=== PATIENT | female | born 1930 | race Caucasian/White ===

== ENCOUNTER 2016-07-15 15:32 | Inpatient (IN) | payer OTHER, MEDICARE ==
[~2016-07-15] VITALS: Ht 157.5 cm; Wt 62.6 kg
--- NOTE | 2016-07-15 16:03 | NUR ---
RECEIVED 85 YO FEMALE SENT BY PCP, DR JUNIOR, FOR DECREASED RESPONSIVENESS X FEW DAYS, NOT EATING OR DRINKING, CONTINUOUS NAUSEA. PT D/C'D [facility] 3 WEEKS AGO FOR CHF. IN OFFICE, HR HIGH, B/P LOW.
--- NOTE | 2016-07-15 16:32 | ED AMS/SEIZURE/WEAK/DIZZY ---
History of Present Illness General Chief Complaint: General Adult Stated Complaint: SENT IN BY PCP, NOT WELLING Source: patient, family, old records Exam Limitations: no limitations Allergies Coded Allergies: bumetanide (From BUMEX) (Intermediate, SKIN BLISTERS 07/15/16) furosemide (Intermediate, SKIN BLISTERS 07/15/16) Reconcile Medications Aspirin (Aspirin*) 81 MG TAB.CHEW 1 TAB PO DAILY HEART/BLOOD (Reported) Carbidopa/Levodopa (Sinemet 25-100 MG Tablet) 25 MG-100 MG TABLET 1 TAB PO 4XDAILY PARKINSONS (Reported) Hydrochlorothiazide 25 MG TABLET 1 TAB PO DAILY DIURETIC (Reported) Spironolactone 25 MG TABLET 1 TAB PO DAILY DIURETIC (Reported) Triage Note: RECEIVED 85 YO FEMALE SENT BY PCP, DR JUNIOR, FOR DECREASED RESPONSIVENESS X FEW DAYS, NOT EATING OR DRINKING, CONTINUOUS NAUSEA. PT D/C'D [facility] 3 WEEKS AGO FOR CHF. IN OFFICE, HR HIGH, B/P LOW. Triage Nurses Notes Reviewed? yes Onset: Gradual Duration: week(s): (3), constant, getting worse Timing: recent history Injury Environment: home Severity: moderate Severity Numbers: 7 No Modifying Factors: none Associated Symptoms: nausea HPI: 85-year-old female history of Parkinson's hypertension and CHF presents sent in by her primary care physician complaining of progressively worsening weakness poor appetite and nausea. She was seen at [facility] last month for similar symptoms with no known cause identified. The patient denies any abdominal pain however states she's been nauseous and has had decreased appetite secondary to her symptoms. No diarrhea black or bloody stools no urinary frequency urgency or dysuria. 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 No recent changes in her medications no modifying factors or associated symptoms otherwise. (RAZ DE LA CRUZ) Vital Signs & Intake/Output Vital Signs & Intake/Output Vital Signs Date Time Temp Pulse Resp B/P Pulse O2 O2 Flow FiO2 Ox Delivery Rate 07/15 2114 93 18 123/70 96 Nasal 2.0L Cannula 07/15 1836 96.7 18 93 Nasal 1.0L Cannula 07/15 1836 104 18 143/77 87 Room Air 07/15 1559 98.5 109 20 146/88 92 Room Air Past History Travel History Traveled to [place] past 21 day No Medical History Any Pertinent Medical History? see below for history Neurological: Parkinson's disease EENT: NONE Cardiovascular: hypertension, mitral regurgitation, MITRAL VALVE PROLAPSE Surgical History Surgical History: non-contributory Psychosocial History What is your primary language Syriac Tobacco Use: Never used Family History Hx Contributory? No (RAZ DE LA CRUZ) Review of Systems Review of Systems Constitutional: Reports: see HPI. All Other Systems: Reviewed and Negative Comments Review of systems: See HPI, All other systems negative. Constitutional, no chills no fever, malaise HEENT: No visual changes no sore throat no congestion, no ear pain Cardiovascular: No chest pain , no palpitation , Skin, no jaundice no rashes, no change in skin Respiratory: No dyspnea no cough no sputum GI: No nausea no vomiting, no diarrhea, : No dysuria No hematuria, no frequency Muscle skeletal: No joint pain, no back pain, no neck pain, Neurologic: No numbness no confusion, no headache Psych: No stress Heme/endocrine: No bruising no bleeding Immunology: No lymphadenopathy (RAZ DE LA CRUZ) Physical Exam Physical Exam General Appearance: well developed/nourished, alert, awake Comments: Well-developed well-nourished person in no acute distress HEENT: Normal EENT exam; PERRL, EOMI, . HEAD is atraumatic. moist mucous membranes. Neck: Supple, normal range of motion Back: Nontender, no CVA tenderness. Full range of motion Cardiovascular: Regular rate and rhythms no murmurs rubs Respiratory: Chest nontender.There were no bony deformities, no asymmetry. No respiratory distress. Patient speaking in full complete sentences. Breath sounds clear to auscultation bilaterally: NO W/R/R Abdomen: Soft, nontender nondistended, no appreciable organomegaly. Normal bowel sounds. No rebound/guarding, there is no right upper quadrant tenderness to palpation negative Mathis's Extremity: No edema, full range of motion of extremities Neuro: Alert oriented x3, motor sensory normal, cranial nerves II through XII grossly intact. There were no obvious focal neurologic abnormalities. Skin: No appreciable rash on exposed skin, skin is warm and dry. No jaundice Psych: Mood and affect is normal, memory and judgment is normal. Core Measures ACS in differential dx? No CVA/TIA Diagnosis: No Severe Sepsis Present: No Septic Shock Present: No (RAZ DE LA CRUZ) Progress Differential Diagnosis: arrythmia, anemia, benign positional vertigo, CVA/stroke , dehydration, electrolyte imbalance, GI bleed, hypoglycemia, hypoxia, pneumonia , postural hypotension, seizure disorder, subarachnoid Hem., UTI/pyelo, vertebrobasilar insuff, electrolyte abnoramlity Diagnostic Imaging: Viewed by Me: Radiology Read. Discussed w/RAD: Radiology Read. Radiology Impression: PATIENT: LINDA JEFFRIES PRESENT AGE: 85 PATIENT ACCOUNT NO: [id number] : [birth year] LOCATION: [facility] ORDERING PHYSICIAN: RAZ HAIDER SERVICE DATE: 07/15/16 EXAM TYPE: RAD - XRY- PORTABLE CHEST XRAY EXAMINATION: XR PORTABLE CHEST CLINICAL INFORMATION: Malaise. Weakness. COMPARISON: None. TECHNIQUE: Portable AP view of the chest was obtained. FINDINGS: Single AP view of the chest demonstrates pulmonary hypoinflation. There is blunting of the bilateral costophrenic angles, indicative of small bilateral pleural effusions. Cardiomediastinal contours are prominent and there is mild to moderate central venous congestion. No overt pulmonary edema is identified. Bibasilar opacification is likely secondary to atelectasis although superimposed infection cannot be excluded. There is limited evaluation for small apical pneumothoraces given patient neck positioning. Incidental note is made of moderate to severe degenerative changes of the right glenohumeral joint. IMPRESSION: Bilateral pleural effusions, [id number] in volume. Cardiomegaly and mild central venous congestion, without overt pulmonary edema. DICTATED BY: STEPHANIE SUGGS MD DATE/TIME DICTATED:07/15/161731 FOOD SERVICE ORDER CLERK:CALIXTO DATE/TIME TRANSCRIBED:07/15/161731 CONFIDENTIAL, DO NOT COPY WITHOUT APPROPRIATE AUTHORIZATION. <Electronically signed in Other Vendor System> SIGNED BY: STEPHANIE SUGGS MD 07/15/16 1746 Initial ED EKG: sinus tach at 100, PVC, nonspecific ST segment changes Rhythm Strip: normal sinus rhythm (RAZ DE LA CRUZ) Plan of Care: Orders Procedure Date/time Status Regular Diet 07/16 B Active Patient Data 07/15 2141 Active OXYGEN SETUP (GEN) 07/15 2009 Active Saline Lock 07/15 2009 Active Misc Message 07/15 2009 Active ED Holding Orders 07/15 2009 Active Vital Signs 07/15 2009 Active Activity/Ambulation 07/15 2009 Active Code Status 07/15 2009 Active Admit to inpatient 07/15 1931 Active Add-on Test (ER Only) 07/15 1906 Active Add-on Test (ER Only) 07/15 1813 Active CULTURE,URINE 07/15 181 Active Add-on Test (ER Only) 07/15 1803 Active DIRECT BILIRUBIN 07/15 1700 Complete B-TYPE NATRIURETIC PEP (BNP) 07/15 1700 Complete URINALYSIS 07/15 1653 Complete TROPONIN LEVEL 07/15 1653 Complete MAGNESIUM 07/15 1653 Complete COMPREHENSIVE METABOLIC PANEL 07/15 165 Complete CBC WITHOUT DIFFERENTIAL 07/15 165 Complete EKG 07/15 1632 Active Laboratory Tests 07/15/16 1810: Urine Color YEL, Urine Clarity HAZY H, Urine pH 6.5, Ur Specific [place] 1.015, Urine Protein NEG, Urine Ketones NEG, Urine Nitrite POS H, Urine Bilirubin NEG, Urine Urobilinogen 0.2, Ur Leukocyte Esterase SMALL H, Ur Microscopic SEDIMENT EXAMINED, Urine RBC 3-5, Urine WBC 15-25 H, Ur Epithelial Cells OCCAS, Urine Bacteria MANY H, Urine Hemoglobin TRACE-INTACT, Urine Glucose NEG 07/15/16 1700: Anion Gap 12, Estimated GFR > 60, BUN/Creatinine Ratio 17.1, Glucose 101 H, Calcium 9.4, Magnesium 1.6, Total Bilirubin 3.8 H, Direct Bilirubin 0.6 H, AST 15, ALT 26, Alkaline Phosphatase 89, Troponin I 0.02, Zcw-R-Lyemfaztrmo Pept 4480 H, Total Protein 6.8, Albumin 3.8, Globulin 3.0, Albumin/Globulin Ratio 1.3, CBC w Diff NO MAN DIFF REQ, RBC 4.78, MCV 91.0, MCH 30.4, RDW 14.5, MPV 7.9 , Gran % 82.8 H, Lymphocytes % 8.2 L, Monocytes % 7.2, Eosinophils % 0.5, Basophils % 1.3, Absolute Granulocytes 9.3 H, Absolute Lymphocytes 0.9 L, Absolute Monocytes 0.8 H, Absolute Eosinophils 0.1, Absolute Basophils 0.1, PUBS MCHC 33.4 Microbiology 07/15 1810 URINE ROUT: Urine Culture - RECD Labs ordered old records included patient's previous hospitalization records were reviewed that were made available to me by family patient denies any symptoms at this time other than nausea, her abdomen exam is soft nontender Old records reviewed including the patient's previous visit to an admission to [facility],. The patient was found to be dehydrated with jaundice and elevated LFTs. bilirubin elevated in upper 2's The patient had an outpatient MRCP performed Patient's recent ultrasound of the abdomen showed gallbladder sludge there is no biliary duct dilatation normal liver tiny right pleural effusion, recent chest x -ray showed no acute pulmonary process. 07/15/2016 6:17:01 PM discussed with the patient's family all her lab results x- ray findings to date resting comfortably IV fluids slowly infusing Zofran IV ordered 07/15/2016 6:43:40 PM I was called to the patient's room after she was noted to be 87% on room air the fluids were stopped, the lungs are clear to auscultation she was put on 2 L with oxygen saturation up to 95%. Patient denies shortness of breath difficulty breathing chest pain. She reports her nausea has completely resolved with Zofran. CTA ordered patient again resting comfortably 07/15/2016 7:36:27 PM patient resting comfortably on 2 L 94% denies shortness of breath, chest pain with inspiration no abdominal pain abdomen remained soft nontender nausea has resolved discussed with the patient and her family at length all of her lab results and plan of care, pending CTA case was discussed with Dr. MARIA ELENA BARRIENTOS ADMIT- house staff will follow resulst of cta/abd pelivs (JUSTIN HAIDER,RAZ) Radiology Impression: PATIENT: LINDA JEFFRIES PRESENT AGE: 85 PATIENT ACCOUNT NO: [id number] : [birth year] LOCATION: [facility] ORDERING PHYSICIAN: RAZ HAIDER SERVICE DATE: 07/15/16 EXAM TYPE: CAT - CT ABD & PELVIS W IV CONTRAST; CTA CHEST-PULMONARY EMBOLISM EXAMINATION: CT ANGIOGRAM CHEST WITH CONTRAST CT ABDOMEN AND PELVIS WITH CONTRAST CLINICAL INFORMATION: Hypoxia. Tachycardia. Elevated bilirubin. Nausea. COMPARISON: Chest x-ray 07/15/2016. TECHNIQUE: A noncontrast localizer was performed, followed by the administration of 95 mL Optiray [address] of the chest was then performed. Coronal and sagittal reformatted and 3-D technique MIP images of the chest were completed at the CT scanner and reviewed on the PACS workstation. No adverse effects were reported. Images were then performed through the abdomen and pelvis. Coronal and sagittal reformatted images performed at CT scanner by technologist. DLP: 629.74 mGy-cm. FINDINGS: CTA CHEST : VASCULAR: The main pulmonary artery, secondary and tertiary branches of the pulmonary artery are normally opacified with no evidence of pulmonary embolism. The aorta and great vessels are unremarkable. MEDIASTINUM: No mediastinal mass. No significant lymphadenopathy. There is no pericardial effusion. LUNGS: Bibasilar consolidation at lung bases. FLUID: Moderate volume bilateral pleural effusions. AXILLA: No significant lymphadenopathy. CT SCAN ABDOMEN PELVIS: LIVER , GALLBLADDER, AND BILIARY TREE: The liver is normal in size, shape, and attenuation. No focal hepatic lesion or biliary ductal dilatation is present. The gallbladder is unremarkable with no evidence of radiopaque gallstones, gallbladder wall thickening, or obvious pericholecystic inflammatory changes. PANCREAS: Unremarkable. SPLEEN: Unremarkable. ADRENAL GLANDS: Unremarkable. KIDNEYS AND URETERS: A 2 cm cortical cyst at the upper pole of the left kidney. No hydronephrosis. No renal or ureteral calculus. BLADDER: Unremarkable. GASTROINTESTINAL TRACT: Diverticulosis throughout the large bowel. No diverticulitis. No acute change of bowel. No bowel obstruction. No bowel wall thickening or edema. Moderate volume of stool throughout the colon. The appendix is normal. The small bowel loops are normal. ABDOMINAL WALL: 2.8 x 1.9 x 2.7 cm fat-containing right inguinal hernia. LYMPH NODES: Normal. VASCULAR: Vascular wall calcifications throughout the abdomen and pelvis. No aneurysm of the aorta. PELVIC VISCERA: Status post hysterectomy. OSSEOUS STRUCTURES: Degenerative spondylosis of the spine with disc height narrowing and endplate spurs and facet joint arthrosis. Levoscoliosis at the thoracolumbar junction. IMPRESSION: 1. No evidence of pulmonary embolism. 2. Bilateral pleural effusions with bibasilar atelectasis. 3. No acute abnormality of the abdomen or pelvis. There is diverticulosis of the colon but no acute change of the bowel. No abnormality of the liver, gallbladder or bile ducts. DICTATED BY: MONI BENTLEY MD DATE/TIME DICTATED:07/15/162047 FOOD SERVICE ORDER CLERK:CALIXTO DATE/TIME TRANSCRIBED:2047 CONFIDENTIAL, DO NOT COPY WITHOUT APPROPRIATE AUTHORIZATION. < Electronically signed in Other Vendor System> SIGNED BY: MONI BENTLEY MD [id number] (ANDREIA CROCKETT,ADRI Zarco) Departure Departure Time of Disposition: 1934 Disposition: STILL A PATIENT Condition: Stable Clinical Impression Primary Impression: UTI (urinary tract infection) Secondary Impressions: Elevated bilirubin, Fluid overload, Pleural effusion, Weakness Referrals: SANDI CROCKETT,TAYLA Pereyra (PCP/Family) Departure Forms: Customer Survey General Discharge Information Admission Note Spoke With: LEIGHANN ARREDONDO MD Documentation of Exam: Documentation of any treatments & extenuating circumstances including Concerns Regarding Discharge (functional status, medication knowledge or non-compliance, living conditions, etc.) that warrant an admission rather than observation: Cardiology consult possible GI consult given elevated bilirubin trend labs possible IV diuresis IV antibiotics trend cultures premature discharge would BE medically harmful (RAZ DE LA CRUZ) PA/OPEN HEARTH FURNACE OPERATOR HELPER Co-Sign Statement Statement: ED Attending supervision documentation- [x] I saw and evaluated the patient. I have also reviewed all the pertinent lab results and diagnostic results. I agree with the findings and the plan of care as documented in the PA's/OPEN HEARTH FURNACE OPERATOR HELPER's documentation. [] I have reviewed the ED Record and agree with the PA's/OPEN HEARTH FURNACE OPERATOR HELPER's documentation. [] Additions or exceptions (if any) to the PAs/OPEN HEARTH FURNACE OPERATOR HELPER's note and plan are summarized below: [] (FATOUMATA HAIDER,ANNAMARIA)
[2016-07-15] MEDS ORDERED: OMEPRAZOLE20 M2 PO (16:37)
[2016-07-15] MEDS ORDERED: SPIRONOLACTONE25 M1 PO (16:38)
[2016-07-15] MEDS ORDERED: HYDROCHLOROTHIA25 M1 PO (16:38)
[2016-07-15] MEDS ORDERED: ASPIRIN81 M4 PO (16:39)
[2016-07-15 17:11] LABS: ABSOLUTE BASOPHIL COUNT 0.1 /CUMM (0.0-0.2); ABSOLUTE EOSINOPHIL COUNT 0.1 /CUMM (0.0-0.7); ABSOLUTE GRANULOCYTE CT 9.3 /CUMM (1.4-6.5); ABSOLUTE LYMPH COUNT 0.9 /CUMM (1.2-3.4); ABSOLUTE MONOCYTE COUNT 0.8 /CUMM (0.10-0.60); BASOPHIL % 1.3 % (0.0-2.0); EOSINOPHIL % 0.5 % (0-5); GRANULOCYTE % 82.8 % (42.2-75.2); HEMATOCRIT 43.5 % (37-47); MEAN CORPUSCULAR HGB 30.4 PG (27.0-31.0); MEAN CORPUSCULAR HGB CONC 33.4 G/DL (33.0-37.0); MEAN PLATELET VOLUME 7.9 FL (7.4-10.4); PLATELET COUNT 212 /CUMM (130-400); RBC DISTRIBUTION WIDTH 14.5 % (11.5-14.5); RED BLOOD CELL CT 4.78 /CUMM (4.20-5.40); WHITE BLOOD CELL COUNT 11.3 /CUMM (4.8-10.8)
--- NOTE | 2016-07-15 17:44 | RADIOLOGY REPORT ---
EXAMINATION: XR PORTABLE CHEST CLINICAL INFORMATION: Malaise. Weakness. COMPARISON: None. TECHNIQUE: Portable AP view of the chest was obtained. FINDINGS: Single AP view of the chest demonstrates pulmonary hypoinflation. There is blunting of the bilateral costophrenic angles, indicative of small bilateral pleural effusions. Cardiomediastinal contours are prominent and there is mild to moderate central venous congestion. No overt pulmonary edema is identified. Bibasilar opacification is likely secondary to atelectasis although superimposed infection cannot be excluded. There is limited evaluation for small apical pneumothoraces given patient neck positioning. Incidental note is made of moderate to severe degenerative changes of the right glenohumeral joint. IMPRESSION: Bilateral pleural effusions, [id number] in volume. Cardiomegaly and mild central venous congestion, without overt pulmonary edema.
[2016-07-15] MEDS ORDERED: SINEMET 25-1001 EACH PO (18:13)
--- NOTE | 2016-07-15 20:06 | NUR ---
PT TO CT
--- NOTE | 2016-07-15 21:24 | CT SCAN REPORT ---
EXAMINATION: CT ANGIOGRAM CHEST WITH CONTRAST CT ABDOMEN AND PELVIS WITH CONTRAST CLINICAL INFORMATION: Hypoxia. Tachycardia. Elevated bilirubin. Nausea. COMPARISON: Chest x-ray 07/15/2016. TECHNIQUE: A noncontrast localizer was performed, followed by the administration of 95 mL Optiray [address] of the chest was then performed. Coronal and sagittal reformatted and 3-D technique MIP images of the chest were completed at the CT scanner and reviewed on the PACS workstation. No adverse effects were reported. Images were then performed through the abdomen and pelvis. Coronal and sagittal reformatted images performed at CT scanner by technologist. DLP: 629.74 mGy-cm. FINDINGS: CTA CHEST: VASCULAR: The main pulmonary artery, secondary and tertiary branches of the pulmonary artery are normally opacified with no evidence of pulmonary embolism. The aorta and great vessels are unremarkable. MEDIASTINUM: No mediastinal mass. No significant lymphadenopathy. There is no pericardial effusion. LUNGS: Bibasilar consolidation at lung bases. FLUID: Moderate volume bilateral pleural effusions. AXILLA: No significant lymphadenopathy. CT SCAN ABDOMEN PELVIS: LIVER, GALLBLADDER, AND BILIARY TREE: The liver is normal in size, shape, and attenuation. No focal hepatic lesion or biliary ductal dilatation is present. The gallbladder is unremarkable with no evidence of radiopaque gallstones, gallbladder wall thickening, or obvious pericholecystic inflammatory changes. PANCREAS: Unremarkable. SPLEEN: Unremarkable. ADRENAL GLANDS: Unremarkable. KIDNEYS AND URETERS: A 2 cm cortical cyst at the upper pole of the left kidney. No hydronephrosis. No renal or ureteral calculus. BLADDER: Unremarkable. GASTROINTESTINAL TRACT: Diverticulosis throughout the large bowel. No diverticulitis. No acute change of bowel. No bowel obstruction. No bowel wall thickening or edema. Moderate volume of stool throughout the colon. The appendix is normal. The small bowel loops are normal. ABDOMINAL WALL: 2.8 x 1.9 x 2.7 cm fat-containing right inguinal hernia. LYMPH NODES: Normal. VASCULAR: Vascular wall calcifications throughout the abdomen and pelvis. No aneurysm of the aorta. PELVIC VISCERA: Status post hysterectomy. OSSEOUS STRUCTURES: Degenerative spondylosis of the spine with disc height narrowing and endplate spurs and facet joint arthrosis. Levoscoliosis at the thoracolumbar junction. IMPRESSION: 1. No evidence of pulmonary embolism. 2. Bilateral pleural effusions with bibasilar atelectasis. 3. No acute abnormality of the abdomen or pelvis. There is diverticulosis of the colon but no acute change of the bowel. No abnormality of the liver, gallbladder or bile ducts.
--- NOTE | 2016-07-15 22:27 | History & Physical ---
BENJIE CAMPOS MD 07/15/167: General Information and HPI MD Statement: I have seen and personally examined LINDA JEFFRIES and documented this H&P. The patient is a 85 year old F who presented with a patient stated chief complaint of nausea, fatigue, malaise. Source of Information: patient, family, old records Exam Limitations: clinical condition History of Present Illness: 85-year-old woman with significant past medical history of Parkinson's disease sent in for evaluation by her primary care provider for progressively worsening weakness, poor appetite, and nausea. Patient is a poor historian secondary to clinical condition and baseline mental function, she is accompanied by multiple family members to offer collateral information regarding her healthcare condition. Patient was recently admitted to [facility] last month for similar symptoms for which she underwent an extensive evaluation due to findings of elevated liver function testing, elevated bilirubin, and dehydration. During this hospital stay patient was given intravenous fluid resuscitation, however subsequently became fluid overloaded requiring diuresis for an acute congestive heart failure exacerbation with Bumex as patient is allergic to Lasix. Collateral information obtained from family reveals that Gilbert's Disease runs in the family, but are unsure if the patient has the disease. Patient had an outpatient MRCP performed which was reportedly within normal limits. Patient's recent abdominal ultrasound reportedly showed gallbladder sludge without any biliary duct dilatation. Presently patient is resting comfortably and offers no complaints, however she appears to stare off into space and it is unclear if she is understanding of questioning. When asked if she has any complaints she states no. Additionally she denies any headache, fever, chills, chest pain, palpitations, shortness of breath, cough, nausea, vomiting, diarrhea, numbness/tingling PMHx: Parkinson's disease, hypertension, congestive heart failure, mitral valve prolapse, hypertension Allergies/Medications Allergies: Coded Allergies: bumetanide (From BUMEX) (Intermediate, SKIN BLISTERS 07/15/16) furosemide (Intermediate, SKIN BLISTERS 07/15/16) Home Med list Aspirin (Aspirin*) 81 MG TAB.CHEW 1 TAB PO DAILY HEART/BLOOD (Reported) Carbidopa/Levodopa (Sinemet 25-100 MG Tablet) 25 MG-100 MG TABLET 1 TAB PO 4XDAILY PARKINSONS (Reported) Hydrochlorothiazide 25 MG TABLET 1 TAB PO DAILY DIURETIC (Reported) Spironolactone 25 MG TABLET 1 TAB PO DAILY DIURETIC (Reported) Past History Travel History Traveled to [place] past 21 day No Medical History Neurological: Parkinson's disease EENT: NONE Cardiovascular: hypertension, mitral regurgitation, MITRAL VALVE PROLAPSE Surgical History Surgical History: non-contributory Review of Systems Review of Systems Constitutional: Reports: see HPI. Exam & Diagnostic Data Last 24 Hrs of Vital Signs/I&O Vital Signs Date Time Temp Pulse Resp B/P Pulse O2 O2 Flow FiO2 Ox Delivery Rate 07/16 0107 97.4 83 18 110/70 97 Nasal 2.0L Cannula 07/15 2241 97.8 86 18 114/64 96 Nasal 2.0L Cannula 07/15 2114 93 18 123/70 96 Nasal 2.0L Cannula 07/15 1836 96.7 18 93 Nasal 1.0L Cannula 07/15 1836 104 18 143/77 87 Room Air 07/15 1559 98.5 109 20 146/88 92 Room Air Intake & Output 07/16 0800 07/16 0000 07/15 1600 Intake Total Output Total Balance Patient 65.317 kg Weight Physical Exam General Appearance Cooperative, No Acute Distress Skin No Rashes, No Breakdown, No Significant Lesion HEENT Atraumatic, PERRLA, EOMI, Mucous Membr. moist/pink Neck Supple, No JVD, No thryomegaly, +2 Carotid Pulse wo Bruit Cardiovascular Regular Rate, Normal S1, Normal S2, Holosystolic murmur with radiation to the axilla Lungs Bibasilar crackles Abdomen Normal Bowel Sounds, Soft, No Tenderness, No Hepatospenomegaly, No Masses Neurological Sensation Intact, Cranial Nerves 3-12 NL, Soft speech, Increased tone, masked facial expression Extremities No Clubbing, No Cyanosis, No Edema, Normal Pulses, No Tenderness/ Swelling Vascular Normal Pulses, Pulses Symmetrical Last 24 Hrs of Labs/Jerod: Laboratory Tests 07/16/16 0045: Troponin I 0.03 07/15/16 1810: Urine Color YEL, Urine Clarity HAZY H, Urine pH 6.5, Ur Specific [place] 1.015, Urine Protein NEG, Urine Ketones NEG, Urine Nitrite POS H, Urine Bilirubin NEG, Urine Urobilinogen 0.2, Ur Leukocyte Esterase SMALL H, Ur Microscopic SEDIMENT EXAMINED, Urine RBC 3-5, Urine WBC 15-25 H, Ur Epithelial Cells OCCAS, Urine Bacteria MANY H, Urine Hemoglobin TRACE-INTACT, Urine Glucose NEG 07/15/16 1700: Anion Gap 12, Estimated GFR > 60, BUN/Creatinine Ratio 17.1, Glucose 101 H, Calcium 9.4, Magnesium 1.6, Total Bilirubin 3.8 H, Direct Bilirubin 0.6 H, AST 15, ALT 26, Alkaline Phosphatase 89, Troponin I 0.02, Axq-K-Lyzhxofpecz Pept 4480 H, Total Protein 6.8, Albumin 3.8, Globulin 3.0, Albumin/Globulin Ratio 1.3, CBC w Diff NO MAN DIFF REQ, RBC 4.78, MCV 91.0, MCH 30.4, RDW 14.5, MPV 7.9 , Gran % 82.8 H, Lymphocytes % 8.2 L, Monocytes % 7.2, Eosinophils % 0.5, Basophils % 1.3, Absolute Granulocytes 9.3 H, Absolute Lymphocytes 0.9 L, Absolute Monocytes 0.8 H, Absolute Eosinophils 0.1, Absolute Basophils 0.1, PUBS MCHC 33.4 Microbiology 07/15 1810 URINE ROUT: Urine Culture - RECD Diagnostic Data EKG Results Sinus Tachycardia HR 106 WI 100 QTc 487 CXR Results IMPRESSION: Bilateral pleural effusions, [id number] in volume. Cardiomegaly and mild central venous congestion, without overt pulmonary edema. Other Results EXAM TYPE: CAT - CT ABD & PELVIS W IV CONTRAST; CTA CHEST-PULMONARY EMBOLISM IMPRESSION: 1. No evidence of pulmonary embolism. 2. Bilateral pleural effusions with bibasilar atelectasis. 3. No acute abnormality of the abdomen or pelvis. There is diverticulosis of the colon but no acute change of the bowel. No abnormality of the liver, gallbladder or bile ducts. Assessment/Plan Assessment: 85-year-old woman with multiple medical problems seen for evaluation of fatigue, malaise, nausea. Patient was reportedly hypoxic to 87% on room air in the ED for which she was placed on supplemental oxygen via nasal cannula and responded appropriately. For her symptoms of nausea, fatigue, malaise she was given 1 L of intravenous normal saline fluid resuscitation and subsequently developed bibasilar crackles. Patient did not have any obvious jugular venous distention or bilateral lower extremity edema. CTA ruled out any evidence of a pulmonary embolus him did comment on bilateral pleural effusions. Given her persistent symptoms suggestive of a gastroenteritis and deranged hepatic function testing in the context of a previous history of congestive heart failure patient is to be admitted to the telemetry floor for optimization of her fluid status and further care. Acute congestive heart failure exacerbation Patient of Dr. Howard. Last month patient was hospitalized at [facility] for similar symptoms of nausea, malaise, and vomiting for which she was given intravenous fluid resuscitation and subsequently developed an acute congestive heart failure exacerbation from fluid overload. She has a reported history of an allergy to Lasix which causes her to develop a bullous pemphigoid exacerbation. She also has an adverse reaction to Bumex with a similar reaction as Lasix however less severe. She has used clobetasol in the past for these bullae formation which offers her relief. Patient has not taken her home doses of spironolactone or hydrochlorothiazide for the past week. -Telemetry -Trend Troponin/EKG -Echocardiogram -Bumex 0.5 mg by mouth IV -Hold spironolactone/hydrochlorothiazide, restart as tolerated per fluid status -Clobetasol 1 application topically when necessary for bullae formation -Benadryl as needed for adverse reaction to Bumex -Cardiology consult Nausea/vomiting/weakness/malaise/transaminitis Patient with a family history of Gilbert's disease. She has a reported history of persistently elevated transaminases with elevated total bilirubin to the "5" during her recent [facility] hospitalization. Outpatient MRCP reportedly negative. The symptoms may be secondary to an undiagnosed gastrointestinal disease, however are also possibly suggestive of a gastroenteritis with an undiagnosed Gilbert's disease. -Avoid aggressive intravenous fluids due to history of CHF -Zofran 4 mg IV every 12 hours as needed for nausea, -careful monitoring of worsening prolonged QTc interval, currently 487 -Obtain report for patient's outpatient MRCP Parkinson's disease Patient of Dr. Figueroa. Recently started on Sinemet 3 weeks ago for worsening Parkinson's disease. Patient's reported mental baseline reports that she has waxing/waning lucency with limited ADLs -Sinemet 1 tablet by mouth twice a day -PT evaluation Urinary tract infection Urinalysis demonstrated the VBC 15-25 with occasional epithelial cells and many bacteria with small leukocytes esterase suggestive of a urinary tract infection. She currently denies any symptoms of urinary frequency/urgency/burning/ discharge however due to her clinical/mental condition it is on certain if she is understanding of questioning. -Ceftriaxone 1 g IV daily -Follow-up urine culture and sensitivities Pain plan-acetaminophen Diet-CHF diet DVT prophylaxis-Lovenox CODE STATUS-DNR/DNI As Ranked By This Provider Problem List: 1. Pleural effusion 2. UTI (urinary tract infection) 3. Fluid overload Core Measures/Miscellaneous Acute Coronary Syndrome ACS Diagnosis: No Cerebrovascular Accident CVA/TIA Diagnosis: No Congestive Heart Failure CHF Diagnosis: Yes Comment: Unknown last echo or EF Venous Thromboembolism VTE Risk Factors: Acute medical illness, Age > 40, CHF or Resp failure No Mech VTE prophylaxis d/t: No contraindications No VTE Pharm Prophylaxis d/t: No contraindications VTE Diagnosis: No VTE Type: NONE VTE Confirmed by (Test): NONE Severe Sepsis Severe Sepsis Present: No Septic Shock Septic Shock Present: No Miscellaneous Documentation Attending Case Discussed With: LEIGHANN ARREDONDO MD Primary Care Physician: TAYLA JUNIOR MD Patient sees these Specialists Dr. Lee Magdaleno Level of Patient Care: Telemetry Consults Needed: Consulting Specialty: Cardiology MAXI ARREDONDO MD 07/15/16 2254: Attending MD Review Statement Attending Statement Attending MD Statement: examined this patient, discuss w/resident/PA/HOME OFFICE CLAIMS EXAMINER, agreed w/resident/PA/HOME OFFICE CLAIMS EXAMINER, discussed with family Attending Assessment/Plan: 85 yo F with h/o Parkinson's disease, atrial valve prolapse, mitral regurgitation, CHF, HTN is brought in from assisted/ half-way for 1 week h/ o weakness, anorexia and nausea. She denies cough, chest pain, lightheadedness, vomiting, abdominal pain, diarrhea or urinary symptoms. Patient was recently admitted to [facility] (Jun 2015) for dehydration, but went into fluid overload for which she had to be diuresed. She was also noted to be jaundiced with elevated Bilirubin, RUQ ultrasound suggestive of gallbladder sludge --> MRCP was advised which was done at [facility] results unknown, but family reports it was clear. Patient's daughter , grandson and son have Gilbert's syndrome but patient has not been investigated for it. She had c/o dysphagia but family refused a swallow eval to assess this while at [facility]. Patient was taken off spirinolactone and HCTZ, however over the past weekend she developed LE edema and based on PCP recommendation she was given 2 doses. Vitals stable except for an episode of hypoxia (87% RA) --> 97% on 2L. Exam: awake, alert, slow to respond but responds appropriately, mucous membranes moist , JVP fullness+, Chest bibasilar crackles++, Heart S1S2 regular, holosystolic murmur radiating to the axilla, LE: 1+ edema with chronic venous stasis changes. Labs: WBC 11.3, T. Bili 3.8, proBNP 4480, trop neg. UA hazy, nitrite positive, small LE, WBC 15-25, many bacteria. CXR: b/l pleural effusions, cardiomegaly and mild central venous congestion. CTA chest/abd/pelvis: no PE, b/l pleural effusion with atelectasis. No acute abnormality in abdomen. EKG: Sinus tachycardia with bentricular bigeminy, Qtc 489. 1. Acute decompensation of CHF in the setting of severe MR, with hypoxia. Tele admit, strict I/O, daily weights, patient is allergic to lasix (induced bullous pemphigoid) and bumex (similar reaction though less intensity). She was on spirinolactone and HCTZ that has been recently discontinued. We will give her one dose of Bumex and assess diuresis. Serial EKG and troponin to rule out ACS, Echo and Cardio consult in AM. Replete electrolytes. 2. UTI. Although she does not have urinary symptoms, she has systemic symptoms of weakness, anorexia, hence will treat with IV ceftriaxone. Follow urine culture. Anti-emetics PRN. 3. Possible worsening Parkinson's disease with ?dementia. Needs outpatient geriatric eval. PT eval and possible placement. 4. Elevated bilirubin of unclear etiology. Please obtain outpatient MRCP results. Patient most likely may have Gilbert's syndrome which her son/daughter/ grandson have been diagnosed with. No acute intervention. DVT ppx Lovenox. DNR/LILA PONCE 07/16/16 0215: Resident Review Statement Resident Statement: examined this patient, discussed with culinary internship, agreed with culinary internship, amended to note Other Findings: 85-year-old lady with past medical history of CHF,, mitral valve prolapse Parkinson,GIlberts syndrome, came to the hospital with chief complaint of not feeling well, nausea, weakness, fogginess of the mind. Most of the information were obtained from the patient's daughter and son. According to family patient had an episode of gastroenteritis in June and at that point she went to [facility] and rehydrated and also had subsequent exacerbation of CHF instituted with Bumex 1 time( patient has allergy to Lasix and Bumex and she develops bullous pemphigoid). Patient also underwent MRCP( Because of elevated bilirubin nausea vomiting)About 1 week ago, which according the family the results were unremarkable. Patient has been inconsistent living facility about 1 months and according to the family she still had nausea but no vomiting, feeling weak and slow to response questions recently.she was on spironolactone and hydrochlorothiazide however she has not been taking them for at least 1 week . Patient denies any chest pain, diarrhea, dizziness, headache, excessive coughing , fever, chills, dysuria recently. In the ED patient received 1 L of normal saline vital signs on admission were stable except requiring 2 L of oxygen (Which developed in the ED) physical exam patient was alert and oriented, 3/6 systolic murmur possibly MR, basal lung crackles, +1 bilateral leg edema in mid shins, abdomen was soft and nontender CXR: IMPRESSION: Bilateral pleural effusions, [id number] in volume. Cardiomegaly and mild central venous congestion, without overt pulmonary edema. CTA and abdominal CT scan: 1. No evidence of pulmonary embolism. 2. Bilateral pleural effusions with bibasilar atelectasis. 3. No acute abnormality of the abdomen or pelvis. There is diverticulosis of the colon but no acute change of the bowel. No abnormality of the liver, gallbladder or bile ducts. UA showed many bacteria, WBC 15-25, positive nitrate and leukocyte esterase, Total bilirubin 3.8, direct troponin 0.8, troponin 0.2,BNP 4480, WBC 11.3 (82%) Patient was in sinus tachycardia 107, QTC 485, multiple PVCs Assessment and plan #CHF exacerbation -one dose of bumex (she and the family on already aware of the side effect of the Bumex and are in agreement forgetting day 1 time dose ) - benadryl cap and clobetasol cream for possible adverse reaction. -Echocardiogram in the morning -EKG and troponin 3 -CHF diet -patient did not take her spironolactone and hydrochlorothiazide for at least 7 days #UTI -Urine culture -Continue ceftriaxone daily #Nausea, feeling week -Given the mild increase QTC we will give Zofran when necessary every 12 -we will follow QTC in subsequent EKGs -PT eval in the morning #elevated billirbunin -Most likely due to Gilbert Syndrome, which patient daughter and grandson has too - family will bring the results of the MRCP tomorrow -Outpatient workup is recommended #parkinsons -Continue Sinemet 25/100 Er Q6 hours ( converted to 500/200 CR Q 12 hours) DNR/DNI, DVT prophylaxis is mechanical and Lovenox, Tylenol for pain, CHF diet
--- NOTE | 2016-07-15 22:38 | NUR ---
PT ASSIGNED TO ROOM 174-1
--- NOTE | 2016-07-15 22:54 | Admission Certification ---
Admission Certification Certification Statement - As attending physician, I certify that at the time of - admission, based on clinical presentation, severity of - symptoms, need for further diagnostic testing and - therapeutic interventions, and risk of adverse outcomes - without in-hospital treatment, in my clinical assessment, - this patient requires an acute hospital stay for a minimum - of two nights or longer. I have also considered psychsocial - factors such as support system, advanced age, financial - issues, cognitive issues, and failed out-patient treatments, - past re-admission history, safety of patient, and lack of - compliance as applicable. Specific rationale supporting this admission is: Acute decompensation of congestive heart failure with hypoxia, needs Telemetry monitoring. UTI, weakness and dementia.
--- NOTE | 2016-07-15 22:55 | NUR ---
REPORT CALLED TO LYNN LARSON
[2016-07-16 01:07] VITALS: BP 110/70
[2016-07-16 08:31] LABS: ABSOLUTE BASOPHIL COUNT 0.1 /CUMM (0.0-0.2); ABSOLUTE EOSINOPHIL COUNT 0.1 /CUMM (0.0-0.7); ABSOLUTE GRANULOCYTE CT 5.7 /CUMM (1.4-6.5); ABSOLUTE MONOCYTE COUNT 0.6 /CUMM (0.10-0.60); BASOPHIL % 0.9 % (0.0-2.0); EOSINOPHIL % 1.1 % (0-5); GRANULOCYTE % 75.8 % (42.2-75.2); HEMATOCRIT 39.6 % (37-47); MEAN CORPUSCULAR HGB 31.2 PG (27.0-31.0); MEAN CORPUSCULAR VOLUME 91.7 FL (81.0-99.0); MEAN PLATELET VOLUME 9.2 FL (7.4-10.4); PLATELET COUNT 188 /CUMM (130-400); RBC DISTRIBUTION WIDTH 14.8 % (11.5-14.5); RED BLOOD CELL CT 4.32 /CUMM (4.20-5.40); WHITE BLOOD CELL COUNT 7.5 /CUMM (4.8-10.8)
[2016-07-16 08:51] VITALS: BP 102/60
--- NOTE | 2016-07-16 11:27 | PN- Att Addend ---
Attending Addendum Attending Brief Note Patient seen and examined with the team. History limited as patient is not a very reliable informant. She is an 85-year-old with underlying Parkinson's disease, congestive heart failure with mitral regurgitation and a recent diagnosis of jaundice with a negative MRCP as evidenced by the radiology report from outside. She is here with what was thought to be an acute CHF exacerbation. Her bili is 3.[address] abdomen and pelvis with IV contrast is negative for any obstruction. She has a positive UA and is being treated with IV ceftriaxone as she can't really tell us whether she has urinary symptoms or not. Her concierge receptionist is from [facility] and Dr. Abrams is going to see her and help clarify with us the need for IV diuretics. She has a history of getting bullous pemphigoid, severe with Lasix and mild with Bumex which may severely limit our ability to effectively diurese her. We are also clarifying all her medications specifically her Sinemet and will follow-up.
--- NOTE | 2016-07-16 12:00 | PN- Housestaff ---
See Addendum Subjective Follow-up For: Deconditioning, weakness bilateral lower extremity swelling Tele-Events Since Last Visit: Sinus rhythm, first-degree heart block, PACs, PVCs, heart rate in the 80s Subjective: Seen and examined patient. Patient had issues regarding Sinemet dosing. Denies shortness of breath, denied chest pain, fever, burning on urination, abdominal pain. Review of Systems Constitutional: Denies: chills, diaphoresis, fever, malaise, weakness, unexplained weight loss. Cardiovascular: Denies: chest pain, edema, orthopena, palpitations, peripheral edema, syncope. Respiratory: Denies: cough, hemoptysis, orthopnea, short of breath, sputum production, stridor, wheezing. Objective Last 24 Hrs of Vital Signs/I&O Vital Signs Date Time Temp Pulse Resp B/P Pulse O2 O2 Flow FiO2 Ox Delivery Rate 07/16 0851 97.7 80 16 102/60 95 Nasal 2.0L Cannula 07/16 0800 95 Nasal 2.0L Cannula 07/16 0107 97.4 83 18 110/70 97 Nasal 2.0L Cannula 07/16 0000 94 Nasal 2.0L Cannula 07/15 2241 97.8 86 18 114/64 96 Nasal 2.0L Cannula 07/15 2114 93 18 123/70 96 Nasal 2.0L Cannula 07/15 1836 96.7 18 93 Nasal 1.0L Cannula 07/15 1836 104 18 143/77 87 Room Air 07/15 1559 98.5 109 20 146/88 92 Room Air Intake & Output 07/16 1600 07/16 0800 07/16 0000 Intake Total Output Total Balance Patient 216 lb 116 lb Weight Physical Exam General Appearance: Alert, Oriented X3, Cooperative, No Acute Distress Skin: No Rashes Cardiovascular: Normal S1, Normal S2, systolic murmur Lungs: Clear to Auscultation, Normal Air Movement Abdomen: Normal Bowel Sounds, Soft Extremities: +2 edema Current Medications: Current Medications Sig/Gayle Start time Last Medication Dose Route Stop Time Status Admin Acetaminophen 650 MG Q6 PRN 07/15 2230 AC PO Bumetanide 0.5 MG ONCE ONE 07/16 0215 DC 07/16 IV 07/16 0216 0250 Carbidopa/Levodopa 1 TAB ONCE ONE 07/16 1400 CAN PO 07/16 1401 Carbidopa/Levodopa 1 TAB 0800,1300,1700,210.. 07/16 1300 DC PO 07/16 1301 Carbidopa/Levodopa 1 TAB 0800,1300,1700,2100 07/16 1300 AC PO Carbidopa/Levodopa 1 TAB BID 07/15 2300 DC 07/16 PO 1019 Carbidopa/Levodopa 1 TAB ONCE ONE 07/15 2100 DC PO 07/15 2101 Ceftriaxone Sodium 1,000 MG DAILY@07/16 2100 CAN IV Ceftriaxone Sodium 1,000 MG DAILY 07/16 1000 DC IV Ceftriaxone Sodium 0 .STK-MED ONE 07/15 204 DC .ROUTE Ceftriaxone Sodium 1,000 MG ONCE ONE 07/15 194 DC 07/15 IV 07/15 Clobetasol Propionate 1 LYNN DAILY PRN 07/15 2230 AC TOP Diphenhydramine HCl 25 MG ONCE PRN 07/16 0215 AC PO Enoxaparin Sodium 40 MG DAILY 07/16 1000 AC 07/16 SC 1019 Ondansetron HCl 4 MG Q12P PRN 07/15 223 AC IV Ondansetron HCl 0 .STK-MED ONE 07/15 1742 DC .ROUTE Ondansetron HCl 4 MG ONCE ONE 07/15 1700 DC 07/15 IV 07/15 1701 1743 Sodium Chloride 1,000 ML ONCE ONE 07/15 1700 DC 07/15 IV 07/15 2339 1743 Last 24 Hrs of Lab/Jerod Results Last 24 Hrs of Labs/Mics: Laboratory Tests 07/16/16 0655: Anion Gap 12, Estimated GFR > 60, BUN/Creatinine Ratio 13.8, Troponin I 0.03, CBC w Diff NO MAN DIFF REQ, RBC 4.32, MCV 91.7, MCH 31.2 H, RDW 14.8 H, MPV 9.2, Gran % 75.8 H, Lymphocytes % 13.8 L, Monocytes % 8.4, Eosinophils % 1.1, Basophils % 0.9, Absolute Granulocytes 5.7, Absolute Lymphocytes 1.0 L, Absolute Monocytes 0.6, Absolute Eosinophils 0.1, Absolute Basophils 0.1, PUBS MCHC 34.0 07/16/16 0045: Troponin I 0.03 07/15/16 1810: Urine Color YEL, Urine Clarity HAZY H, Urine pH 6.5, Ur Specific [place] 1.015, Urine Protein NEG, Urine Ketones NEG, Urine Nitrite POS H, Urine Bilirubin NEG, Urine Urobilinogen 0.2, Ur Leukocyte Esterase SMALL H, Ur Microscopic SEDIMENT EXAMINED, Urine RBC 3-5, Urine WBC 15-25 H, Ur Epithelial Cells OCCAS, Urine Bacteria MANY H, Urine Hemoglobin TRACE-INTACT, Urine Glucose NEG 07/15/16 1700: Anion Gap 12, Estimated GFR > 60, BUN/Creatinine Ratio 17.1, Glucose 101 H, Calcium 9.4, Magnesium 1.6, Total Bilirubin 3.8 H, Direct Bilirubin 0.6 H, AST 15, ALT 26, Alkaline Phosphatase 89, Troponin I 0.02, Nup-S-Ascqacqbbyz Pept 4480 H, Total Protein 6.8, Albumin 3.8, Globulin 3.0, Albumin/Globulin Ratio 1.3, CBC w Diff NO MAN DIFF REQ, RBC 4.78, MCV 91.0, MCH 30.4, RDW 14.5, MPV 7.9 , Gran % 82.8 H, Lymphocytes % 8.2 L, Monocytes % 7.2, Eosinophils % 0.5, Basophils % 1.3, Absolute Granulocytes 9.3 H, Absolute Lymphocytes 0.9 L, Absolute Monocytes 0.8 H, Absolute Eosinophils 0.1, Absolute Basophils 0.1, PUBS MCHC 33.4 Microbiology 07/15 1810 URINE ROUT: Urine Culture - RES GRAM NEGATIVE RODS Assessment/Plan Assessment: 85-year-old woman with medical history significant for Parkinson's disease on Sinemet, atrial valve prolapse, mitral regurgitation, HFpEF, HTN current admission for weakness, anorexia and nausea, she was recently admitted presented to [facility] for dehydration and jaundice with elevated LFTs, however she was not admitted. Labs were pertinent for elevated proBNP, troponin negative 3 , UA positive for nitrates and small leukocyte esterase and 15-25 urine WBC. Chest x-ray shows bilateral pleural effusion, small to moderate in volume, cardiomegaly and mild central venous congestion Problem list Deconditioning Parkinson's disease HFpEF Plan Spoke at length to patient's daughter Jessi Pepper phone #[phone], who stated the patient was recently treated for upper respiratory infection with Levaquin a course of approximately 7 days, the patient lives at home and is supported by her son and daughter and an health aide. She has documented reaction to Lasix :bullous pemphigoid 2 years ago which has confirmed by her health officer Dr. Semaj Hinton at [facility], she also recently received a dose of Bumex on and had a similar reaction. To be noted she did recieve one dose of bumex on admission and no skin leisons has been observed. Patient denies any symptoms of urinary tract infection however preliminary UA shows-negative rods. will continue with IV antibiotic pending sensitivities Verified Sinemet dosing with patient and her daughter, she takes Sinemet CR QID science manager has Her science manager recently stopped her hydrochlorothiazide as well as her spironolactone. Blood pressures have been low normal in 100 systolic and 60-70 diastolic Cardiology consulted, per records from [facility] EF is documented as 65% DVT prophylaxis with subcutaneous Lovenox DNI/DNR Problem List: 1. Pleural effusion 2. Fluid overload Pain Ratin Pain Location: Not applicable Pain Goal: Pain 4 or less Pain Plan: Current regimen Tomorrow's Labs & Rationales: bep Consulting Request: Consulting Specialty: Cardiology
[2016-07-16 15:30] VITALS: BP 108/58
--- NOTE | 2016-07-16 16:22 | Cons- Cardiology ---
General Information and HPI Consulting Request Date of Consult: 07/16/16 Requested By: WAYNE CROCKETT,NOEL Ybarra Reason for Consult: heart failure History of Present Illness: the patient is an 85-year-old female with history of Parkinson's disease, heart failure, and mitral regurgitation who is followed in the office by a chief mechanical engineer at [facility]. 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 She normally takes hydrochlorothiazide 25 milligrams b.i.d. for her congestive heart failure, however she was recently admitted to [facility] with volume depletion, and diuretic therapy was discontinued. She saw her chief mechanical engineer 1 week ago and was advised to continue to stay off the hydrochlorothiazide. The patient was sent to the emergency department by her primary care physician for decreased responsiveness. She has complained of recent nausea, and has not been eating or drinking for the past few days. She has not complained of recent chest pain or shortness of breath. No recent orthopnea. She has been noted to have evidence of urinary tract infection, and has been started on IV ceftriaxone. Bilirubin is noted to be elevated. Allergies/Medications Allergies: Coded Allergies: bumetanide (From BUMEX) (Intermediate, SKIN BLISTERS 07/15/16) furosemide (Intermediate, SKIN BLISTERS 07/15/16) Home Med List: Aspirin (Aspirin*) 81 MG TAB.CHEW 1 TAB PO DAILY HEART/BLOOD (Reported) Carbidopa/Levodopa (Sinemet 25-100 MG Tablet) 25 MG-100 MG TABLET 1 TAB PO 4XDAILY PARKINSONS (Reported) Hydrochlorothiazide 25 MG TABLET 1 TAB PO DAILY DIURETIC (Reported) Spironolactone 25 MG TABLET 1 TAB PO DAILY DIURETIC (Reported) Current Medications: Current Medications Sig/Gayle Start time Last Medication Dose Route Stop Time Status Admin Acetaminophen 650 MG Q6 PRN 07/15 2230 AC PO Bumetanide 0.5 MG ONCE ONE 07/16 0215 DC 07/16 IV 07/16 0216 0250 Carbidopa/Levodopa 1 TAB ONCE ONE 07/16 1400 CAN PO 07/16 1401 Carbidopa/Levodopa 1 TAB 0800,1300,1700,210.. 07/16 1300 DC PO 07/16 1301 Carbidopa/Levodopa 1 TAB 0800,1300,1700,2100 07/16 1300 AC 07/16 PO 1727 Carbidopa/Levodopa 1 TAB BID 07/15 2300 DC 07/16 PO 1019 Carbidopa/Levodopa 1 TAB ONCE ONE 07/15 2100 DC PO 07/15 2101 Ceftriaxone Sodium 1,000 MG DAILY@2100 07/16 2100 CAN IV Ceftriaxone Sodium 1,000 MG DAILY 07/16 1000 DC IV Ceftriaxone Sodium 0 .STK-MED ONE 07/15 2045 DC .ROUTE Ceftriaxone Sodium 1,000 MG ONCE ONE 07/15 1945 DC 07/15 IV 07/15 1945 Clobetasol Propionate 1 LYNN DAILY PRN 07/15 2230 AC TOP Diphenhydramine HCl 25 MG ONCE PRN 07/16 0215 AC PO Enoxaparin Sodium 40 MG DAILY 07/16 1000 AC 07/16 SC 1019 Ondansetron HCl 4 MG Q12P PRN 07/15 2230 AC IV Patient Medication 1 ED .STK-MED ONE 07/16 1353 DC Teaching ED 07/16 1354 Sodium Chloride 1,000 ML ONCE ONE 07/15 1700 DC 07/15 IV 07/15 2339 1743 Review of Systems Review of Systems: no tremor. No melena. No syncope. No palpitations. All other systems are reviewed and are noted to be negative. Past History Travel History Traveled to [place] past 21 day No Medical History Blood Transfusion Hx: No Neurological: Parkinson's disease EENT: NONE Cardiovascular: hypertension, mitral regurgitation, MITRAL VALVE PROLAPSE Respiratory: NONE Gastrointestinal: NONE Hepatic: NONE Renal: NONE Musculoskeletal: NONE Psychiatric: NONE Endocrine: NONE Blood Disorders: NONE Cancer(s): NONE MATTRESS STUFFER/Reproductive: NONE Surgical History Surgical History: non-contributory Family History Family History Reviewed? Family history is notable for Gilbert's disease in multiple family members. Psychosocial History Smoking Status: Never Smoked Exam & Diagnostic Data Vital Signs and I&O Vital Signs Date Time Temp Pulse Resp B/P Pulse O2 O2 Flow FiO2 Ox Delivery Rate 07/16 1530 98.3 80 18 108/58 96 Nasal 2.0L Cannula 07/16 0851 97.7 80 16 102/60 95 Nasal 2.0L Cannula 07/16 0800 95 Nasal 2.0L Cannula 07/16 0107 97.4 83 18 110/70 97 Nasal 2.0L Cannula 07/16 0000 94 Nasal 2.0L Cannula 07/15 2241 97.8 86 18 114/64 96 Nasal 2.0L Cannula 07/15 2114 93 18 123/70 96 Nasal 2.0L Cannula 07/16 1835 96.7 18 93 Nasal 1.0L Cannula 07/16 1835 104 18 143/77 87 Room Air Intake & Output 07/16 1600 07/16 0800 07/16 0000 07/15 1600 07/15 0807/15 0000 Intake Total Output Total Balance Patient 216 lb 116 lb 144 lb Weight Physical Exam: Gen: The patient is in no acute distress HEENT: Normal nose, ears, and oropharynx. Pupils equal bilaterally. Conjunctiva normal. Neck: Supple with no JVD, no masses, and no thyromegaly Lungs: Rales in the bases bilaterallywith normal respiratory effort Heart: RRR, S1, S2, no murmurs 3/6 systolic murmur. 1+ peripheral edema, 1+ pulses in the lower extremities bilaterally Abdomen: Soft, nontender, no masses. No hepatomegaly. No splenomegaly Extremities: No clubbing or cyanosis. Normal muscle strength in the upper and lower extremities. Skin: Normal skin turgor with no skin ulcers or lesions noted. Neuro: Cranial nerves intact. Sensation intact Psych: Alert and oriented 3 with appropriate affect Labs/Jerod Results: Laboratory Tests 07/16 07/16 0655 0045 Chemistry Sodium (137 - 145 mmol/L) 140 Potassium (3.5 - 5.1 mmol/L) 3.9 Chloride (98 - 107 mmol/L) 103 Carbon Dioxide (22 - 30 mmol/L) 26 Anion Gap (5 - 16) 12 BUN (7 - 17 mg/dL) 11 Creatinine (0.5 - 1.0 mg/dL) 0.8 Estimated GFR (>60 ml/min) > 60 BUN/Creatinine Ratio (7 - 25 %) 13.8 Troponin I (< 0.11 ng/ml) 0.03 0.03 Hematology CBC w Diff NO MAN DIFF REQ WBC (4.8 - 10.8 /CUMM) 7.5 RBC (4.20 - 5.40 /CUMM) 4.32 Hgb (12.0 - 16.0 G/DL) 13.5 Hct (37 - 47 %) 39.6 MCV (81.0 - 99.0 FL) 91.7 MCH (27.0 - 31.0 PG) 31.2 H RDW (11.5 - 14.5 %) 14.8 H Plt Count (130 - 400 /CUMM) 188 MPV (7.4 - 10.4 FL) 9.2 Gran % (42.2 - 75.2 %) 75.8 H Lymphocytes % (20.5 - 51.1 %) 13.8 L Monocytes % (1.7 - 9.3 %) 8.4 Eosinophils % (0 - 5 %) 1.1 Basophils % (0.0 - 2.0 %) 0.9 Absolute Granulocytes (1.4 - 6.5 /CUMM) 5.7 Absolute Lymphocytes (1.2 - 3.4 /CUMM) 1.0 L Absolute Monocytes (0.10 - 0.60 /CUMM) 0.6 Absolute Eosinophils (0.0 - 0.7 /CUMM) 0.1 Absolute Basophils (0.0 - 0.2 /CUMM) 0.1 PUBS MCHC (33.0 - 37.0 G/DL) 34.0 03/06 03/06 1810 1700 Chemistry Sodium (137 - 145 mmol/L) 139 Potassium (3.5 - 5.1 mmol/L) 3.9 Chloride (98 - 107 mmol/L) 103 Carbon Dioxide (22 - 30 mmol/L) 24 Anion Gap (5 - 16) 12 BUN (7 - 17 mg/dL) 12 Creatinine (0.5 - 1.0 mg/dL) 0.7 Estimated GFR (>60 ml/min) > 60 BUN/Creatinine Ratio (7 - 25 %) 17.1 Glucose (65 - 99 mg/dL) 101 H Calcium (8.4 - 10.2 mg/dL) 9.4 Magnesium (1.6 - 2.3 mg/dL) 1.6 Total Bilirubin (0.2 - 1.3 mg/dL) 3.8 H Direct Bilirubin (< 0.4 mg/dL) 0.6 H AST (14 - 36 U/L) 15 ALT (9 - 52 U/L) 26 Alkaline Phosphatase (<127 U/L) 89 Troponin I (< 0.11 ng/ml) 0.02 Ajn-M-Gkacygocraq Pept (<125 pg/mL) 4480 H Total Protein (6.3 - 8.2 g/dL) 6.8 Albumin (3.5 - 5.0 g/dL) 3.8 Globulin (1.9 - 4.2 gm/dL) 3.0 Albumin/Globulin Ratio (1.1 - 2.2 %) 1.3 Hematology CBC w Diff NO MAN DIFF REQ WBC (4.8 - 10.8 /CUMM) 11.3 H RBC (4.20 - 5.40 /CUMM) 4.78 Hgb (12.0 - 16.0 G/DL) 14.5 Hct (37 - 47 %) 43.5 MCV (81.0 - 99.0 FL) 91.0 MCH (27.0 - 31.0 PG) 30.4 RDW (11.5 - 14.5 %) 14.5 Plt Count (130 - 400 /CUMM) 212 MPV (7.4 - 10.4 FL) 7.9 Gran % (42.2 - 75.2 %) 82.8 H Lymphocytes % (20.5 - 51.1 %) 8.2 L Monocytes % (1.7 - 9.3 %) 7.2 Eosinophils % (0 - 5 %) 0.5 Basophils % (0.0 - 2.0 %) 1.3 Absolute Granulocytes (1.4 - 6.5 /CUMM) 9.3 H Absolute Lymphocytes (1.2 - 3.4 /CUMM) 0.9 L Absolute Monocytes (0.10 - 0.60 /CUMM) 0.8 H Absolute Eosinophils (0.0 - 0.7 /CUMM) 0.1 Absolute Basophils (0.0 - 0.2 /CUMM) 0.1 PUBS MCHC (33.0 - 37.0 G/DL) 33.4 Urines Urine Color (YEL,AMB,STR) YEL Urine Clarity (CLEAR) HAZY H Urine pH (5.0 - 8.0) 6.5 Ur Specific [place] (1.001 - 1.035) 1.015 Urine Protein (NEG,<30 MG/DL) NEG Urine Ketones (NEG) NEG Urine Nitrite (NEG) POS H Urine Bilirubin (NEG) NEG Urine Urobilinogen (0.1 - 1.0 EU/dl) 0.2 Ur Leukocyte Esterase (NEG) SMALL H Ur Microscopic SEDIMENT EXAMINED Urine RBC (0 - 5 /HPF) 3-5 Urine WBC (0 - 2 /HPF) 15-25 H Ur Epithelial Cells (NONE,FEW) OCCAS Urine Bacteria (NEG/NONE) MANY H Urine Hemoglobin (NEG) TRACE-INTACT Urine Glucose (N MG/DL) NEG Diagnostic Data EKG Results EKG tracing is independently reviewed, and reveals normal sinus rhythm at 82, right bundle-branch block, left posterior fascicular block CXR Results Chest x-ray: Bilateral pleural effusions, [id number]-lm-[id number] in volume. Cardiomegaly and mild central venous congestion, without overt pulmonary edema. Other Results CT scan of the chest: 1. No evidence of pulmonary embolism. 2. Bilateral pleural effusions with bibasilar atelectasis. 3. No acute abnormality of the abdomen or pelvis. There is diverticulosis of the colon but no acute change of the bowel. No abnormality of the liver, gallbladder or bile ducts. Assessment/Plan Assessment/Plan the patient is an 85-year-old female with history of Parkinson's disease, mitral regurgitation, and congestive heart failure presenting with mental status changes, diagnosed with urinary tract infection. She was recently admitted to [facility] with volume depletion, and her oral hydrochlorothiazide was discontinued at that time. She has a history of bullous pemphigoid secondary to both Lasix and bumetanide. Recommendations: * Agree with IV antibiotic therapy for urinary tract infection. * Restart hydrochlorothiazide 25 milligrams p.o. b.i.d. * hold off on loop diuretic therapy for now given her history of skin reaction. If her loop diuretic is needed, ethacrynic acid would be least likely to have cross reactivity with Lasix and Bumex. * Echocardiogram * Obtain records from [facility] if possible. Consult Acknowledgment - Thank you for your consult request.
[2016-07-16 21:00] VITALS: BP 126/80
[2016-07-17 00:38] VITALS: BP 110/64
[2016-07-17 08:00] VITALS: BP 110/60
[2016-07-17 08:03] LABS: ABSOLUTE BASOPHIL COUNT 0.1 /CUMM (0.0-0.2); ABSOLUTE EOSINOPHIL COUNT 0.2 /CUMM (0.0-0.7); ABSOLUTE GRANULOCYTE CT 3.5 /CUMM (1.4-6.5); ABSOLUTE LYMPH COUNT 1.4 /CUMM (1.2-3.4); ABSOLUTE MONOCYTE COUNT 0.5 /CUMM (0.10-0.60); BASOPHIL % 0.9 % (0.0-2.0); EOSINOPHIL % 3.4 % (0-5); GRANULOCYTE % 61.5 % (42.2-75.2); HEMATOCRIT 36.7 % (37-47); MEAN CORPUSCULAR HGB 30.9 PG (27.0-31.0); MEAN CORPUSCULAR HGB CONC 33.8 G/DL (33.0-37.0); MEAN CORPUSCULAR VOLUME 91.6 FL (81.0-99.0); MEAN PLATELET VOLUME 8.9 FL (7.4-10.4); PLATELET COUNT 159 /CUMM (130-400); RBC DISTRIBUTION WIDTH 14.6 % (11.5-14.5); RED BLOOD CELL CT 4.01 /CUMM (4.20-5.40); WHITE BLOOD CELL COUNT 5.7 /CUMM (4.8-10.8)
--- NOTE | 2016-07-17 09:46 | PN- Housestaff ---
JAX DENT 07/17/16 0946: Subjective Follow-up For: Deconditioning, weakness bilateral lower extremity swelling Tele-Events Since Last Visit: Sinus rhythm bundle branch block, PVCs, bigeminy Subjective: Seen and examined patient. Offers no complaints, she did not report any pain anywhere. Denies any dizziness, chest pain, palpitations, shortness of breath Review of Systems Constitutional: Denies: chills, diaphoresis, fever, malaise, weakness, unexplained weight loss. Cardiovascular: Denies: chest pain, edema, orthopena, palpitations, peripheral edema, syncope. Respiratory: Denies: cough, hemoptysis, orthopnea, short of breath, sputum production, stridor, wheezing. Objective Last 24 Hrs of Vital Signs/I&O Vital Signs Date Time Temp Pulse Resp B/P Pulse O2 O2 Flow FiO2 Ox Delivery Rate 07/17 828 94 Nasal 2.0L Cannula 07/18 799 98.0 80 20 110/60 97 Nasal 2.0L Cannula 07/17 0038 98.2 80 20 110/64 98 07/17 0000 Nasal 2.0L Cannula 07/16 2100 89 126/80 07/16 1600 96 Nasal 2.0L Cannula Intake & Output 07/17 1600 07/17 0800 07/17 0000 Intake Total 400 120 560 Output Total 350 300 Balance 50 120 260 Intake, Oral 400 120 560 Output, Urine 350 300 Patient 140 lb Weight Physical Exam General Appearance: Alert, Oriented X3, Cooperative, No Acute Distress Cardiovascular: Normal S1, Normal S2, pansystolic murmur heard in all areas Lungs: Normal Air Movement Extremities: +2 bilateral pitting edema Current Medications: Current Medications Sig/Gayle Start time Last Medication Dose Route Stop Time Status Admin Acetaminophen 650 MG Q6 PRN 07/15 2230 AC PO Carbidopa/Levodopa 1 TAB 0800,1300,1700,2100 07/16 1300 AC 07/17 PO 0721 Ceftriaxone Sodium 1,000 MG DAILY 07/17 1000 DC IV Ceftriaxone Sodium 1,000 MG 07/16 2000 DC 07/16 IV 2105 Cephalexin 250 MG Q6 07/17 1800 AC PO Clobetasol Propionate 1 LYNN DAILY PRN 07/15 2230 AC TOP Diphenhydramine HCl 25 MG ONCE PRN 07/16 0215 AC PO Enoxaparin Sodium 40 MG DAILY 07/16 1000 AC 07/17 SC 0924 Hydrochlorothiazide 25 MG 7:30 AM, & 4:30 PM 07/16 1900 DC 07/17 PO 0721 Ondansetron HCl 4 MG Q12P PRN 07/15 2230 AC IV Last 24 Hrs of Lab/Jerod Results Last 24 Hrs of Labs/Mics: Laboratory Tests 07/17/16 0625: CBC w Diff NO MAN DIFF REQ, RBC 4.01 L, MCV 91.6, MCH 30.9, RDW 14.6 H, MPV 8.9, Gran % 61.5, Lymphocytes % 25.3, Monocytes % 8.9, Eosinophils % 3.4, Basophils % 0.9, Absolute Granulocytes 3.5, Absolute Lymphocytes 1.4, Absolute Monocytes 0.5, Absolute Eosinophils 0.2, Absolute Basophils 0.1, PUBS MCHC 33.8 Assessment/Plan Assessment: 85-year-old woman with medical history significant for Parkinson's disease on Sinemet, atrial valve prolapse, mitral regurgitation, HFpEF, HTN current admission for weakness, anorexia and nausea, she was recently admitted presented to [facility] for dehydration and jaundice with elevated LFTs, however she was not admitted. Labs were pertinent for elevated proBNP, troponin negative 3 , UA positive for nitrates and small leukocyte esterase and 15-25 urine WBC. Chest x-ray shows bilateral pleural effusion, small to moderate in volume, cardiomegaly and mild central venous congestion. Patient continues to answer questions appropriately for me and she remains alert and hemodynamically stable. Problem list Deconditioning Parkinson's disease HFpEF Severe MRevere aortic stenosis Plan: sensitive to Keflex, will start patient on by mouth Keflex for a total of 5 days continue Sinemet Echo shows severe aortic stenosis, severe mitral regurgitation, EF of > 60% patient's son and daughter had concerns regarding patient's mentation today. They felt that patient's mental status was being affected by her hydrochlorothiazide. Daughter feels her mother seems "off". Attending also had an extensive family meeting which they voiced similar concerns. Hydrochlorothiazide was discontinued. Her blood pressures have remained stable. PT recommending short-term rehabilitation DVT prophylaxis with subcutaneous Lovenox DNI/DNR Problem List: 1. UTI (urinary tract infection) 2. Weakness 3. Fluid overload Pain Ratin Pain Location: Not applicable Pain Goal: Pain 4 or less Pain Plan: Current regimen Tomorrow's Labs & Rationales: BEP, magnesium, CBC Consulting Request: Consulting Specialty: Cardiology NOEL BLACK MD 07/17/16 1441: Attending MD Review Statement Attending Statement Attending MD Statement: examined this patient, discuss w/resident/PA/LABEL OPERATOR, agreed w/resident/PA/LABEL OPERATOR, discussed with family, reviewed EMR data (avail), discussed with nursing, discussed with case mgmt, reviewed images Attending Assessment/Plan: I spent a lot of time with the patient and patient's family and spoke to Dr. Yeh the covering granulizing machine operator as well. This is an 85-year-old female who gets all her care at [facility] and now due to dissatisfaction with care there, is transitioning all care here. She has valvular heart disease with an echo today that is showing critical and severe MR and is here with acute heart failure secondary to the valvular heart disease. Treatment options are severely limited due to bullous pemphigoid that she gets with Lasix and Bumex and right now we have her on thiazide 25 twice a day. The family is very worried that she has adverse reactions to hydrochlorothiazide and we are watching for those closely. In addition she has severe Parkinson's disease with medication that she is getting 4 times a day and we are treating her with IV ceftriaxone for UTI as we feel the might have been some clinical improvement given the lowered white count and the improved mentation per family after treatment with antibiotics. PT is working with her and have recommended STR but the family appears very reluctant for that and will follow-up closely.
--- NOTE | 2016-07-17 10:44 | ECHOCARDIOGRAM REPORT ---
LINDA JEFFRIES Age: 85 : 1930 Gender: F Exam Date: 07/16/2016 20:08 Exam Location: [place] Ht (in): 62 Wt (lb): 216 BSA: 2.12 BP: 102 / 60 Ordering Physician: LILA TORRES MD Referring Physician: Hernán Abrams MD Technologist: Blanca Lai [facility] Room Number: 174-01 Indications: HEART FAILURE Rhythm: Sinus Technical Quality: Good FINDINGS Left Ventricle Normal size left ventricle. Normal left ventricular wall thickness. Normal left ventricular ejection fraction visually estimated at > 60%. No obvious regional wall motion abnormalities. Right Ventricle Normal right ventricular size and function. Right Atrium Normal right atrial size. Left Atrium Mild left atrial dilatation. Mitral Valve Moderate mitral annular calcification. Mitral valve thickened. Severe prolapse of posterior mitral leaflet. Moderate to severe mitral regurgitation with eccetric jet. Aortic Valve Diffuse thickening (sclerosis) of the aortic valve cusps with reduced excursion. Severe aortic stenosis. Mean aortic valve gradient 65 mmHg. Tricuspid Valve Tricuspid valve not well visualized, grossly normal. Mild tricuspid regurgitation. Right ventricular systolic pressure estimated to be elevated at 61 mmHg. Pulmonic Valve Pulmonic valve not well visualized, grossly normal. Mild pulmonic regurgitation. Pericardium No pericardial effusion. Great Vessels Normal size aortic root. CONCLUSIONS Normal size left ventricle. Normal left ventricular ejection fraction visually estimated at > 60%. Mild left atrial dilatation. Moderate mitral annular calcification. Mitral valve thickened. Severe prolapse of posterior mitral leaflet. Moderate to severe mitral regurgitation with eccetric jet. Severe aortic stenosis. Mean aortic valve gradient 65 mmHg. Mild tricuspid regurgitation. Right ventricular systolic pressure estimated to be elevated at 61 mmHg. Hernán Abrams M.D. (Electronically Signed) Final Date: 17 July 2016 10:44 MEASUREMENTS (Male / Female) Normal Values 2D ECHO LV Diastolic Diameter PLAX 5.0 cm 4.2 - 5.9 / 3.9 - 5.3 cm LV Systolic Diameter PLAX 2.4 cm 2.1 - 4.0 cm LV Fractional Shortening PLAX 52.0 % 25 - 46 % LV Ejection Fraction 2D Teich 83.0 % IVS Diastolic Thickness 1.1 cm LVPW Diastolic Thickness 1.0 cm LV Relative Wall Thickness 0.4 RV Internal Dim ED PLAX 3.6 cm 1.9 - 3.8 cm LVOT Diameter 1.9 cm Aortic Root Diameter 3.0 cm LA Systolic Diameter LX 4.8 cm 3.0 - 4.0 / 2.7 - 3.8 cm LA Volume 97.0 cm 18 - 58 / 22 - 52 cm Ascending Aorta Diameter 2.6 cm DOPPLER AV Peak Velocity 552.0 cm/s AV Peak Gradient 111.0 mmHg AV Mean Velocity 380.0 cm/s AV Mean Gradient 62.0 mmHg AV Velocity Time Integral 135.0 cm LVOT Peak Velocity 104.0 cm/s LVOT Peak Gradient 4.3 mmHg LVOT Mean Velocity 68.8 cm/s LVOT Mean Gradient 2.0 mmHg LVOT Velocity Time Integral 18.1 cm LVOT Stroke Volume 51.3 cm AV Area Cont Eq vti 0.4 cm AV Area Cont Eq pk 0.5 cm MV Peak Velocity 201.0 cm/s MV Peak Gradient 16.2 mmHg MV Mean Velocity 110.0 cm/s MV Mean Gradient 6.0 mmHg Mitral E Point Velocity 189.0 cm/s Mitral A Point Velocity 111.0 cm/s Mitral E to A Ratio 1.7 MV PHT Velocity 206.0 cm/s MV Deceleration [place] 872.0 cm/s MV Pressure Half Time 70.9 ms MV Area PHT 3.1 cm MV Deceleration Time 222.0 ms TR Peak Velocity 375.0 cm/s TR Peak Gradient 56.3 mmHg Right Atrial Pressure 5.0 mmHg Pulmonary Artery Systolic Pressu 61.3 mmHg Right Ventricular Systolic Press 61.3 mmHg PV Peak Velocity 132.0 cm/s PV Peak Gradient 7.0 mmHg PV Mean Velocity 71.0 cm/s PV Mean Gradient 3.0 mmHg PV Velocity Time Integral 17.6 cm LV E' Lateral Velocity 12.7 cm/s Mitral E to LV E' Lateral Ratio 14.9 LV E' Septal Velocity 5.7 cm/s Mitral E to LV E' Septal Ratio 33.3
--- NOTE | 2016-07-17 13:45 | Patient Discharge Instructions ---
Discharge Instructions General Discharge Information Special Instructions: PLEASE FOLLOW UP WITH YOUR PCP UPON DISCHARGE PLEASE FOLLOW UP WITH [facility] UPON DISCHARGE REGARDING DIURECTIC Acute Coronary Syndrome Inclusion Criteria At DC or during hospital stay patient has or had the following: ACS DIAGNOSIS No Discharge Core Measures Meds if any: Prescribed or Continued at Discharge Meds if any: NOT Prescribed or Continued at Discharge Congestive Heart Failure Inclusion Criteria At DC or during hospital stay patient has or had the following: CHF DIAGNOSIS No Discharge Core Measures Meds if any: Prescribed or Continued at Discharge Meds if any: NOT Prescribed or Continued at Discharge Cerebrovascular accident Inclusion Criteria At DC or during hospital stay patient has or had the following: CVA/TIA Diagnosis No Discharge Core Measures Meds if any: Prescribed or Continued at Discharge Meds if any: NOT Prescribed or Continued at Discharge Venous thromboembolism Inclusion Criteria VTE Diagnosis No VTE Type NONE VTE Confirmed by (Test) NONE Discharge Core Measures - Per Current guidelines, there needs to be overlap - treatment for the first 5 days of Warfarin therapy. - If discharged on Warfarin prior to 5 days of - overlap therapy, the patient will need to be - assessed for post discharge needs including - *Post discharge parental anticoagulation - *Warfarin and/or parental anticoagulation education - *Follow up date to check INR post discharge At least 5 days overlap therapy as Inpatient No Meds if any: Prescribed or Continued at Discharge Note: Overlap Therapy is Warfarin and Anticoagulant Meds if any: NOT Prescribed or Continued at Discharge
--- NOTE | 2016-07-17 14:15 | PN- Student ---
Subjective Subjective: Patient is seen and examined in chair. Patient reports feeling better compared to yesterday. Patient states she slept on the couch instead of the bed because that helped with her breathing. Patient reports decreased muscle aches and pain in her lower back and extremities. Patient denies headache, vision changes, chest pain, palpitation, shortness of breath, wheezing, abdominal pain, postprandial RUQ pain, bilateral flank pain, suprapubic pain, and difficulty with urination. Patient has not had a bowel movement since 2 days ago. Patient reports no new rashes or pruritus or skin changes. Objective Objective: Gen: AAOx3, NAD, fatigue, elderly female appears stated age Skin: Warm and moist to touch, no new rashes, hives, vesicular lesions noted Head: Normocephalic, Atraumatic Eyes: no scleral icterus, EOM intact Neck: Supple, no masses appreciated Heart: RRR, holosystolic murmur, no rubs/gallops, normal S1, S2 Resp: Mild bibasilar crackles appreciated, but improved compared to yesterday, remaining lung leo were clear to ausculation. No increased work of breathing Abdomen: soft, non-distended, non-tender to palpation diffusely, no suprapubic tenderness, no guarding, no rebound, no CVA tenderness bilaterally Ext: bilateral 1+ pitting tibial edema Neuro: Cranial nerves intact. Sensation intact MSK: muscle strength is 4/5 of her upper extremities bilaterally : Deferred Results Results: Laboratory Tests 07/17/16 0625: CBC w Diff NO MAN DIFF REQ, RBC 4.01 L, MCV 91.6, MCH 30.9, RDW 14.6 H, MPV 8.9, Gran % 61.5, Lymphocytes % 25.3, Monocytes % 8.9, Eosinophils % 3.4, Basophils % 0.9, Absolute Granulocytes 3.5, Absolute Lymphocytes 1.4, Absolute Monocytes 0.5, Absolute Eosinophils 0.2, Absolute Basophils 0.1, PUBS MCHC 33.8 07/16/16 0655: Anion Gap 12, Estimated GFR > 60, BUN/Creatinine Ratio 13.8, Troponin I 0.03, CBC w Diff NO MAN DIFF REQ, RBC 4.32, MCV 91.7, MCH 31.2 H, RDW 14.8 H, MPV 9.2, Gran % 75.8 H, Lymphocytes % 13.8 L, Monocytes % 8.4, Eosinophils % 1.1, Basophils % 0.9, Absolute Granulocytes 5.7, Absolute Lymphocytes 1.0 L, Absolute Monocytes 0.6, Absolute Eosinophils 0.1, Absolute Basophils 0.1, [facility] MCHC 34.0 07/16/16 0045: Troponin I 0.03 07/15/16 1810: Urine Color YEL, Urine Clarity HAZY H, Urine pH 6.5, Ur Specific [place] 1.015, Urine Protein NEG, Urine Ketones NEG, Urine Nitrite POS H, Urine Bilirubin NEG, Urine Urobilinogen 0.2, Ur Leukocyte Esterase SMALL H, Ur Microscopic SEDIMENT EXAMINED, Urine RBC 3-5, Urine WBC 15-25 H, Ur Epithelial Cells OCCAS, Urine Bacteria MANY H, Urine Hemoglobin TRACE-INTACT, Urine Glucose NEG 07/15/16 1700: Anion Gap 12, Estimated GFR > 60, BUN/Creatinine Ratio 17.1, Glucose 101 H, Calcium 9.4, Magnesium 1.6, Total Bilirubin 3.8 H, Direct Bilirubin 0.6 H, AST 15, ALT 26, Alkaline Phosphatase 89, Troponin I 0.02, Han-W-Ecudxzglkku Pept 4480 H, Total Protein 6.8, Albumin 3.8, Globulin 3.0, Albumin/Globulin Ratio 1.3, CBC w Diff NO MAN DIFF REQ, RBC 4.78, MCV 91.0, MCH 30.4, RDW 14.5, MPV 7.9 , Gran % 82.8 H, Lymphocytes % 8.2 L, Monocytes % 7.2, Eosinophils % 0.5, Basophils % 1.3, Absolute Granulocytes 9.3 H, Absolute Lymphocytes 0.9 L, Absolute Monocytes 0.8 H, Absolute Eosinophils 0.1, Absolute Basophils 0.1, PUBS MCHC 33.4 Microbiology 07/15 1809 URINE ROUT: Urine Culture - COMP ESCHERICHIA COLI Assessment/Plan Assessment: 85-year-old woman with PMHx of Parkinson's disease on Sinemet, mitral valve proplase, mitral regurgitation, CHF, HTN admitted for weakness, anorexia and decreased responsiveness. Patient was recently discharged (21 days ago) from [facility] for an acute exacerbation of CHF, dehydration and jaundice with elevated LFTs. Her home diuretic therapy (Hydrochlorothiazide 25mg BID) was discontinued due to concerns regarding volume depletion. Patient has a documented medication allergies of bullous pemphigoid reaction to Lasix and Bumetanide. Patient's urine culture came back growing gram negative rods to go along with her UA suspicious for an UTI due to + nitrites and + leukocyte esterase. Plan: Pleural Effusion 2/2 Acute Exacerbation of her Congestive Heart Failure: Patient most likely developed pleural effusion due to acute volume overload due to the recent discontinuation of her diuretic therapy. Patient echo on 07/17/16 showed severe aortic stenosis, severe mitral regurgiation and severe prolapse of her posterior mitral leaflet with EF > 60%. These underlying cardiac anatomic abnormalities makes our patient highly susceptible to developing acute pulmonary edema. Her serial Troponins and EKGs were negative which make us less concern of an acute coronary syndrome. Plan: - start her on home regimen of diuretic therapy: hydrochlorothiazide 25 milligrams p.o. b.i.d. - stop bumetanide diuretic therapy, however cardiology recommends that if the patient requires loop diuresis, patient can be started on ethacrynic acid as it would be least likely to have cross reactivity with Lasix and Bumex. - continue monitoring of input and outputs - check patient's BEP levels for close monitoring of her sodium status Urinary Tract Infection: Patient's UA demonstrated WBC of 15-25 with occasional epithelial cells and many bacteria with small leukocytes esterase and positive nitries suggestive of a urinary tract infection. Patient's urine culture grew E. Coli that was resistant to ciprofloxacin and incomplete sensitivity to Ampicillin and Augmentin. Plan - continue IV ceftriaxone - trend WBC to monitor patient's response to antibiotics - encourage adequate hydration Parkinson's disease: Patient reports improved tremor and muscle rigidity following the start of her home regiment for levodopa and carvidopa. Patient deneis nausea, vomiting, and mood changes. Plan - Continue levodopa and carvidopa (sinemet Cr 25/100mg) at 0800, 1300, 1700, 2100 - Patient should following with outpatient neurology for medication reevaluation
[2016-07-17 15:30] VITALS: BP 116/78
--- NOTE | 2016-07-17 18:49 | PN- Cardiology ---
Subjective Subjective: The patient appears stable today, however, the patient's daughter remains concerned about the patient's fluctuating mental status and responsiveness. Per the daughter, the patient was more normal yesterday and much more animated and responsive at that time. Today she remains alert but with a more flat affect and slower response times. In addition, unlike yesterday, she is not eating or drinking well today. Objective Vital Signs and I&Os Vital Signs Date Time Temp Pulse Resp B/P Pulse O2 O2 Flow FiO2 Ox Delivery Rate 07/17 1530 97.2 88 20 116/78 95 Nasal 2.0L Cannula 07/17 08 94 Nasal 2.0L Cannula 07/18 799 98.0 80 20 110/60 97 Nasal 2.0L Cannula 07/17 0038 98.2 80 20 110/64 98 07/17 0000 Nasal 2.0L Cannula 07/16 2100 89 126/80 Intake & Output 07/17 1600 07/17 0800 / 0000 07/16 1600 07/16 0800 07/16 0000 Intake Total 400 120 560 600 Output Total 350 300 Balance 50 120 260 600 Intake, Oral 400 120 560 600 Output, Urine 350 300 Patient 140 lb 216 lb 116 lb Weight Physical Exam: General Appearance: Alert, Oriented X3, Cooperative, No Acute Distress Skin: No Rashes Cardiovascular: Normal S1, Normal S2, 3/6 ANNIE Lungs: Clear to Auscultation, Normal Air Movement Abdomen: Normal Bowel Sounds, Soft Extremities: +1-2 edema Current Medications: Current Medications Sig/Gayle Start time Last Medication Dose Route Stop Time Status Admin Acetaminophen 650 MG Q6 PRN 07/15 2230 AC PO Carbidopa/Levodopa 1 TAB 0800,1300,1700,2100 07/16 1300 AC 07/17 PO 1629 Ceftriaxone Sodium 1,000 MG DAILY 07/17 1000 DC IV Ceftriaxone Sodium 1,000 MG 07/16 2000 DC 07/16 IV 2105 Cephalexin 250 MG Q6 07/17 1800 AC 07/17 PO 1629 Clobetasol Propionate 1 LYNN DAILY PRN 07/15 2230 AC TOP Diphenhydramine HCl 25 MG ONCE PRN 07/16 0215 AC PO Enoxaparin Sodium 40 MG DAILY 07/16 1000 AC 07/17 SC 0924 Hydrochlorothiazide 25 MG 7:30 AM, & 4:30 PM 07/16 1900 DC 07/17 PO 0721 Ondansetron HCl 4 MG Q12P PRN 07/15 2230 AC IV Results Last 48 Hrs of Labs/Mics: Laboratory Tests 07/17/16 0625: CBC w Diff NO MAN DIFF REQ, RBC 4.01 L, MCV 91.6, MCH 30.9, RDW 14.6 H, MPV 8.9, Gran % 61.5, Lymphocytes % 25.3, Monocytes % 8.9, Eosinophils % 3.4, Basophils % 0.9, Absolute Granulocytes 3.5, Absolute Lymphocytes 1.4, Absolute Monocytes 0.5, Absolute Eosinophils 0.2, Absolute Basophils 0.1, PUBS MCHC 33.8 07/16/16 0655: Anion Gap 12, Estimated GFR > 60, BUN/Creatinine Ratio 13.8, Troponin I 0.03, CBC w Diff NO MAN DIFF REQ, RBC 4.32, MCV 91.7, MCH 31.2 H, RDW 14.8 H, MPV 9.2, Gran % 75.8 H, Lymphocytes % 13.8 L, Monocytes % 8.4, Eosinophils % 1.1, Basophils % 0.9, Absolute Granulocytes 5.7, Absolute Lymphocytes 1.0 L, Absolute Monocytes 0.6, Absolute Eosinophils 0.1, Absolute Basophils 0.1, PUBS MCHC 34.0 07/16/16 0045: Troponin I 0.03 Assessment/Plan Assessment/Plan Assessment: 1. CHF 2. Severe aortic stenosis 3. 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 Parkinson's 5. Severe Pulmonary HTN Recommendations: - COntinue current management for now - COntinue current diuretic regimen - Further evaluation for fluctuating mental status. - Clearly, this will prove to be a very difficult management probllem in the terminal manager from a cardiovascular standpoint. In view of her severe to critical and moderate to severe MR with significant pulmonary HTN, the ideal intervention would be consideration for a definitive valve procedure. In view of her other issues and current DNR status this will have to be considered and further discussed with the family very carefully since the options, if any would likely be relegated to non surgical interventions. - Further plans and discussion after the outside records from Dr Ugalde office are reviewed. Continue telemetry? Yes
[2016-07-18 00:45] VITALS: BP 110/60
--- NOTE | 2016-07-18 07:53 | PN- Student ---
Subjective Subjective: Patient is seen and examind at bedside. Patient is doing ok. Patient reports some difficulty with swalloing her dinner last night. Her home weatherizing worker said that it might be due to the fact the food is too finely chopped because at home they usually just cut up her food for her and she has no problem swallowing. She suggest that maybe we can change her diet to a pureed diet or she can just cut up the food her at bedside. Patient reports passing gas but continues to not have a bowel movement since admission. Patient normally have 1 bowel movement daily. Patient denies headache, vision changes, chest pain, palpitation, shortness of breath, wheezing, abdominal pain, dysuria, and hematuria. Patient is interestd in trying to walk around today with physical therapy in the afternoon. Objective Objective: Gen: AAOx3, NAD, fatigue, elderly female appears stated age Skin: Warm and moist to touch, no new rashes, hives, vesicular lesions noted Head: Normocephalic, Atraumatic Eyes: no scleral icterus, EOM intact Neck: Supple, no masses appreciated Heart: RRR, 4/6 holosystolic murmur, no rubs/gallops, normal S1, S2, no JVD, negative carotid bruits Resp: Mild inspiratory wheezes on the left lung leo, mild bibasilar crackles, remaining lung leo were clear to ausculation. No increased work of breathing Abdomen: soft, non-distended, non-tender to palpation diffusely, no suprapubic tenderness, no guarding, no rebound, no CVA tenderness bilaterally Ext: bilateral 1+ pitting tibial edema, improved since yesterday morning, fluid has now settled at the distal 1/3 of the lower extremities. Neuro: Cranial nerves intact. Sensation intact MSK: muscle strength is 4/5 of her upper extremities bilaterally : Deferred Results Results: Laboratory Tests 07/18/16 0605: Sodium Pending, Potassium Pending, Chloride Pending, Carbon Dioxide Pending, Anion Gap Pending, BUN Pending, Creatinine Pending, BUN/Creatinine Ratio Pending , Magnesium Pending 07/17/16 0625: CBC w Diff NO MAN DIFF REQ, RBC 4.01 L, MCV 91.6, MCH 30.9, RDW 14.6 H, MPV 8.9, Gran % 61.5, Lymphocytes % 25.3, Monocytes % 8.9, Eosinophils % 3.4, Basophils % 0.9, Absolute Granulocytes 3.5, Absolute Lymphocytes 1.4, Absolute Monocytes 0.5, Absolute Eosinophils 0.2, Absolute Basophils 0.1, [facility] MCHC 33.8 07/16/16 0655: Anion Gap 12, Estimated GFR > 60, BUN/Creatinine Ratio 13.8, Troponin I 0.03, CBC w Diff NO MAN DIFF REQ, RBC 4.32, MCV 91.7, MCH 31.2 H, RDW 14.8 H, MPV 9.2, Gran % 75.8 H, Lymphocytes % 13.8 L, Monocytes % 8.4, Eosinophils % 1.1, Basophils % 0.9, Absolute Granulocytes 5.7, Absolute Lymphocytes 1.0 L, Absolute Monocytes 0.6, Absolute Eosinophils 0.1, Absolute Basophils 0.1, [facility] 34.[facility] 07/16/16 0045: Troponin I 0.03 07/15/16 1810: Urine Color YEL, Urine Clarity HAZY H, Urine pH 6.5, Ur Specific [place] 1.015, Urine Protein NEG, Urine Ketones NEG, Urine Nitrite POS H, Urine Bilirubin NEG, Urine Urobilinogen 0.2, Ur Leukocyte Esterase SMALL H, Ur Microscopic SEDIMENT EXAMINED, Urine RBC 3-5, Urine WBC 15-25 H, Ur Epithelial Cells OCCAS, Urine Bacteria MANY H, Urine Hemoglobin TRACE-INTACT, Urine Glucose NEG 07/15/16 1700: Anion Gap 12, Estimated GFR > 60, BUN/Creatinine Ratio 17.1, Glucose 101 H, Calcium 9.4, Magnesium 1.6, Total Bilirubin 3.8 H, Direct Bilirubin 0.6 H, AST 15, ALT 26, Alkaline Phosphatase 89, Troponin I 0.02, Nvt-A-Bvucqfemoyz Pept 4480 H, Total Protein 6.8, Albumin 3.8, Globulin 3.0, Albumin/Globulin Ratio 1.3, CBC w Diff NO MAN DIFF REQ, RBC 4.78, MCV 91.0, MCH 30.4, RDW 14.5, MPV 7.9 , Gran % 82.8 H, Lymphocytes % 8.2 L, Monocytes % 7.2, Eosinophils % 0.5, Basophils % 1.3, Absolute Granulocytes 9.3 H, Absolute Lymphocytes 0.9 L, Absolute Monocytes 0.8 H, Absolute Eosinophils 0.1, Absolute Basophils 0.1, PUBS MCHC 33.4 Microbiology 07/15 1810 URINE ROUT: Urine Culture - COMP ESCHERICHIA COLI Assessment/Plan Assessment: 85-year-old woman with PMHx of Parkinson's disease on Sinemet, mitral valve proplase, mitral regurgitation, HFpEF, HTN admitted for weakness, anorexia and decreased responsiveness. Patient was recently discharged (21 days ago) from [facility] for an acute exacerbation of CHF, dehydration and jaundice with elevated LFTs. Her home diuretic therapy (Hydrochlorothiazide 25mg BID) was discontinued due to concerns regarding volume depletion. Patient has a documented medication allergies of bullous pemphigoid reaction to Lasix and Bumetanide. Patient's urine culture came back growing gram negative rods to go along with her UA suspicious for an UTI due to + nitrites and + leukocyte esterase. Patient's most recent echo (07/16/16) demonstrated severe mitral regurgitation, mitral valve prolapse, and critical aortic stenosis with an EF > 60%. It was unclear based on the records when the patient's aortic stenosis was first diagnosed. Given the severity of the patient's valvular disease, patient's recent symptoms is most likely due to recent discontinuation of her diuretic medication following discharge from [facility]. Plan: Pleural Effusion 2/2 Acute Exacerbation of her Congestive Heart Failure ( Diastolic HF): Patient most likely developed pleural effusion due to acute volume overload due to the recent discontinuation of her diuretic therapy. Patient echo on 07/17/16 showed severe aortic stenosis, severe mitral regurgiation and severe prolapse of her posterior mitral leaflet with EF > 60%. These underlying cardiac anatomic abnormalities makes our patient highly susceptible to developing acute pulmonary edema. Her serial Troponins and EKGs were negative which make us less concern of an acute coronary syndrome. Patient's family was concerned regarding patient's mental status while on hydrocholorthiazide. Family was informed of the consequences of stopping diuretic therapy and the potential impact on the patient's cardiovascular system. Patient currently has heart failure with preserved ejection fraction (HFpEF) 2/2 to severe mitral regurgitation and critical aortic stenosis. Plan: - due to family's concern with regressing mental status on hydrochlorothiazide, the medication was put on hold after the morning dose and we will reevaulate patient's cognition and fluid status in the AM. - stop bumetanide diuretic therapy, however cardiology recommends that if the patient requires loop diuresis, patient can be started on ethacrynic acid as it would be least likely to have cross reactivity with Lasix and Bumex. - continue close monitoring of input and outputs - check patient's BEP levels in the AM for close monitoring of her sodium status - Will follow up with cardiology to discuss long-term plan for patients severe valvular disease - Check with family in regards to their wishes for rehab following discharge Urinary Tract Infection: Patient's UA demonstrated WBC of 15-25 with occasional epithelial cells and many bacteria with small leukocytes esterase and positive nitries suggestive of a urinary tract infection. Patient's urine culture grew E. Coli that was resistant to ciprofloxacin and incomplete sensitivity to Ampicillin and Augmentin. Patient WBC is trending down from 11.3-5.7. Plan - switch patient from IV antibiotics (ceftriaxone) to PO antibiotics (cephalexin ) - trend WBC to monitor patient's response to antibiotics - encourage adequate hydration Parkinson's disease: Patient reports improved tremor and muscle rigidity following the start of her home regiment for levodopa and carvidopa. Patient deneis nausea, vomiting, and mood changes. Plan - Continue levodopa and carvidopa (sinemet Cr 25/100mg) at 0800, 1300, 1700, 2100 - Patient should following with outpatient neurology for medication reevaluation Secondary Constipation Patient has not had a bowel movement since admission most likely due to ileus, possible fecal impaction, parkinson's disease, and mechanical bowel obstruction. Patient benign abdominal exam, positive flatus, lack of fever and tachycardia make me less suspicious of a complete mechanical bowel obstruction. Ileus cannot be ruled out at this time. Plan: - serial abdominal exam - start patient on docusate if constipation persists for another day
[2016-07-18] MEDS ORDERED: KEFLEX250 M1 PO (08:07)
[2016-07-18 08:30] VITALS: BP 120/70
--- NOTE | 2016-07-18 08:52 | PN- Housestaff ---
JAX DENT 07/18/16 0837: Subjective Follow-up For: Deconditioning, weakness bilateral lower extremity swelling Parkinson's disease Tele-Events Since Last Visit: Sinus rhythm, PVCs, PACs heart rate 60s to 90s Subjective: Seen and examined patient sitting in bed comfortably. Offers no complaints states that she slept well yesterday. Denies chest pain, palpitations, shortness of breath. Feels that her leg swelling has improved. Was informed by nurse that patient was choking on her mechanical diet yesterday therefore was switched back to pure Diet Review of Systems Constitutional: Denies: chills, diaphoresis, fever, malaise, weakness, unexplained weight loss. Cardiovascular: Denies: chest pain, edema, orthopena, palpitations, peripheral edema, syncope. Respiratory: Denies: cough, hemoptysis, orthopnea, short of breath, sputum production, stridor, wheezing. Objective Last 24 Hrs of Vital Signs/I&O Vital Signs Date Time Temp Pulse Resp B/P Pulse O2 O2 Flow FiO2 Ox Delivery Rate 07/19 0738 94 Nasal 2.0L Cannula 07/18 0045 97.6 73 20 110/60 97 Nasal 2.0L Cannula 07/18 0000 Nasal 2.0L Cannula 07/17 1744 94 Nasal 2.0L Cannula 07/17 1530 97.2 88 20 116/78 95 Nasal 2.0L Cannula Intake & Output 07/18 1600 07/18 0800 07/18 0000 Intake Total 60 250 Output Total 250 350 Balance -190 -100 Intake, IV 10 10 Intake, Oral 50 240 Output, Urine 250 350 Patient 138 lb Weight Physical Exam General Appearance: Alert, Oriented X3, Cooperative, No Acute Distress Cardiovascular: Normal S1, Normal S2, systolic murmur Lungs: b/l basal crackles Extremities: No Edema Current Medications: Current Medications Sig/Gayle Start time Last Medication Dose Route Stop Time Status Admin Acetaminophen 650 MG Q6 PRN 07/15 2230 AC PO Carbidopa/Levodopa 1 TAB 0800,1300,1700,2100 07/16 1300 AC 07/18 PO 0754 Ceftriaxone Sodium 1,000 MG 2000 07/16 2000 DC 07/16 IV 2105 Cephalexin 250 MG Q6 07/17 1800 AC 07/18 PO 0641 Clobetasol Propionate 1 LYNN DAILY PRN 07/15 2230 AC TOP Diphenhydramine HCl 25 MG ONCE PRN 07/16 0215 AC PO Enoxaparin Sodium 40 MG DAILY 07/16 1000 AC 07/18 SC 0754 Hydrochlorothiazide 25 MG 7:30 AM, & 4:30 PM 07/16 1900 DC 07/17 PO 0721 Ondansetron HCl 4 MG Q12P PRN 07/15 2230 AC IV Last 24 Hrs of Lab/Jerod Results Last 24 Hrs of Labs/Mics: Laboratory Tests 07/18/16 0605: Anion Gap 8, Estimated GFR > 60, BUN/Creatinine Ratio 21.3, Magnesium 1.7 Assessment/Plan Assessment: 85-year-old woman with medical history significant for Parkinson's disease on Sinemet, atrial valve prolapse, mitral regurgitation, HFpEF, HTN current admission for weakness, anorexia and nausea, she was recently admitted presented to [facility] for dehydration and jaundice with elevated LFTs, however she was not admitted. Labs were pertinent for elevated proBNP, troponin negative 3 , UA positive for nitrates and small leukocyte esterase and 15-25 urine WBC. Chest x-ray shows bilateral pleural effusion, small to moderate in volume, cardiomegaly and mild central venous congestion. Patient continues to answer questions appropriately for me and she remains alert and hemodynamically stable. clinical improvement in lower extremity swelling noted. Problem list Deconditioning Parkinson's disease HFpEF Severe MRevere aortic stenosis Plan: on by mouth Keflex day 3/5 days continue Sinemet Echo shows severe aortic stenosis, severe mitral regurgitation, EF of > 60% Hydrochlorothiazide was discontinued. Her blood pressures have remained stable. PT recommending short-term rehabilitation DIET spoke with speech they are recommending that she be on a mechanical soft moist diet DVT prophylaxis with subcutaneous Lovenox DNI/DNR Problem List: 1. Fluid overload 2. UTI (urinary tract infection) 3. Weakness 4. Parkinsons disease Pain Ratin Pain Location: na Pain Goal: Pain 4 or less Pain Plan: current regimen Tomorrow's Labs & Rationales: none required Consulting Request: Consulting Specialty: Cardiology NOEL BLACK MD 07/18/16 1446: Attending MD Review Statement Attending Statement Attending MD Statement: examined this patient, discuss w/resident/PA/PLANT OPERATOR, agreed w/resident/PA/PLANT OPERATOR, reviewed EMR data (avail), discussed with nursing, discussed with case mgmt Attending Assessment/Plan: Pt complains of nausea, feeling fatigued and feeling tired with no appetite. Dr. Abrams went over the echo results were again with us, she has severe MR but he feels that she does not have severe aortic stenosis and that was misread due to the velocity jet and the way the jet from the MR is directed. I sat down with the family and explained all of this. She's had a very large workup for this nausea and this abdominal distention including the most recent MRCP that's negative. At this point the plan is to treat the UTI with 5-7 days of by mouth antibiotics, work on getting her into rehabilitation. The plan is for an outpatient geriatric eval with someone who can spend 2-3 hours with her and tease out the parkinsonian meds, the impact that the hydrochlorothiazide has had when she takes it and the impact on quality of life and goals of care. We are going to send her off the hydrochlorothiazide given the severe reaction to it with the family feeling like her mentation completely changes with a close watch on her volume status. The family completely understands that she could easily go into volume overload given the severe MR.
--- NOTE | 2016-07-18 13:05 | PN- Cardiology ---
Subjective Subjective: The patient is comfortable. No current chest pain. No shortness of breath. No palpitations. No diaphoresis. Objective Vital Signs and I&Os Vital Signs Date Time Temp Pulse Resp B/P Pulse O2 O2 Flow FiO2 Ox Delivery Rate 07/18 837 94 Nasal 2.0L Cannula 07/18 829 97.0 79 20 120/70 94 Nasal 2.0L Cannula 07/18 0045 97.6 73 20 110/60 97 Nasal 2.0L Cannula 07/18 0000 Nasal 2.0L Cannula 07/17 1744 94 Nasal 2.0L Cannula 07/17 1530 97.2 88 20 116/78 95 Nasal 2.0L Cannula Intake & Output 07/18 1600 07/18 0000 07/17 1600 07/17 0000 Intake Total 60 250 400 120 560 Output Total 250 350 350 300 Balance -190 -100 50 120 260 Intake, IV 10 10 Intake, Oral 50 240 400 120 560 Output, Urine 250 350 350 300 Patient 138 lb 140 lb Weight Physical Exam: Gen: The patient is in no acute distress HEENT: Normal nose, ears, and oropharynx. Pupils equal bilaterally. Conjunctiva normal. Neck: Supple with no JVD, no masses, and no thyromegaly Lungs: Rales in the bases bilaterallywith normal respiratory effort Heart: RRR, S1, S2, no murmurs 3/6 systolic murmur. 1+ peripheral edema, 1+ pulses in the lower extremities bilaterally Abdomen: Soft, nontender, no masses. No hepatomegaly. No splenomegaly Extremities: No clubbing or cyanosis. Normal muscle strength in the upper and lower extremities. Skin: Normal skin turgor with no skin ulcers or lesions noted. Neuro: Cranial nerves intact. Sensation intact Psych: Alert and oriented 3 with appropriate affect Current Medications: Current Medications Sig/Gayle Start time Last Medication Dose Route Stop Time Status Admin Acetaminophen 650 MG Q6 PRN 07/15 2230 AC PO Carbidopa/Levodopa 1 TAB 0800,1300,1700,2100 07/16 1300 AC 07/18 PO 1240 Ceftriaxone Sodium 1,000 MG 07/16 DC 07/16 IV 2105 Cephalexin 250 MG Q6 07/17 1800 AC 07/18 PO 1240 Clobetasol Propionate 1 LYNN DAILY PRN 07/15 223 AC TOP Diphenhydramine HCl 25 MG ONCE PRN 07/16 0215 AC PO Enoxaparin Sodium 40 MG DAILY 07/16 1000 AC 07/18 SD 0754 Hydrochlorothiazide 25 MG 7:30 AM, & 4:30 PM 07/16 1900 DC 07/17 PO 0721 Magnesium Oxide 400 MG ONE ONE 07/18 899 DC 07/18 PO 07/18 900 1027 Ondansetron HCl 4 MG Q12P PRN 07/15 2230 AC IV Potassium Chloride 40 MEQ ONCE ONE 07/18 899 DC 07/18 PO 07/18 900 1028 Results Last 48 Hrs of Labs/Mics: Laboratory Tests 07/18/16604: Anion Gap 8, Estimated GFR > 60, BUN/Creatinine Ratio 21.3, Magnesium 1.7 07/17/16624: CBC w Diff NO MAN DIFF REQ, RBC 4.01 L, MCV 91.6, MCH 30.9, RDW 14.6 H, MPV 8.9, Gran % 61.5, Lymphocytes % 25.3, Monocytes % 8.9, Eosinophils % 3.4, Basophils % 0.9, Absolute Granulocytes 3.5, Absolute Lymphocytes 1.4, Absolute Monocytes 0.5, Absolute Eosinophils 0.2, Absolute Basophils 0.1, PUBS MCHC 33.8 Recent Imaging Studies: Doppler evaluation of the aortic valve was repeated today because of concern that the prior high velocities seen in the aortic valve suggesting aortic stenosis represented artifact from the eccentric mitral regurgitation jet. Additional images confirmed that the prior evidence of aortic stenosis was artifact, and there is no significant aortic stenosis. Assessment/Plan Assessment/Plan Assessment: 1. Acute on chronic diastolic heart failure 2. Moderate to severe mitral regurgitation 3. Repeat Doppler evaluation of the aortic valve was perforemd performed which shows no significant aortic stenosis. The prior Doppler evidence suggesting aortic stenosis is now confirmed to be artifact secondary to eccentric mitral regurgitation jet. There is no hemodynamically significant aortic stenosis. Plan: * Continue antibiotics for urinary tract infection. * Hydrochlorothiazide discontinued because of history of side effects. will keep off diuretics for now. * Follow up with Dr. Saleem as an outpatient. No immediate plans for mitral valve repair, however this could be considered at some point if the patient continues to have recurrent heart failure which is felt to be secondary to the mitral regurgitation. Continue telemetry? Yes
[2016-07-18 15:42] VITALS: BP 128/64
--- NOTE | 2016-07-18 18:06 | ECHOCARDIOGRAM REPORT ---
LINDA JEFFRIES Age: 85 : 1930 Gender: F Exam Date: 07/18/2016 11:30 Exam Location: [address] Ht (in): 62 Wt (lb): 138 BSA: 1.67 BP: 120 / 70 Ordering Physician: HERNÁN NICOLE M Referring Physician: HERNÁN NICOLE MD Technologist: Jonathon Melgar [facility] Room Number: 174-1 Indications: VALVULAR DISEASE Rhythm: Technical Quality: FINDINGS Left Ventricle Right Ventricle Right Atrium Left Atrium Mitral Valve Aortic Valve Aortic valve is thickened. No significant aortic stenosis. Tricuspid Valve Pulmonic Valve Pericardium Great Vessels CONCLUSIONS Aortic valve is thickened. No significant aortic stenosis. Hernán Nicole M.D. (Electronically Signed) Final Date: 18 July 2016 18:05 MEASUREMENTS (Male / Female) Normal Values 2D ECHO LVOT Diameter 2.0 cm Aortic Root Diameter 3.1 cm LA Systolic Diameter LX 4.8 cm 3.0 - 4.0 / 2.7 - 3.8 cm DOPPLER AV Peak Velocity 163.0 cm/s AV Peak Gradient 10.6 mmHg AV Mean Velocity 92.8 cm/s AV Mean Gradient 4.0 mmHg AV Velocity Time Integral 26.6 cm LVOT Peak Velocity 114.0 cm/s LVOT Peak Gradient 5.2 mmHg LVOT Mean Velocity 65.0 cm/s LVOT Mean Gradient 2.0 mmHg LVOT Velocity Time Integral 18.1 cm LVOT Stroke Volume 56.9 cm AV Area Cont Eq vti 2.1 cm AV Area Cont Eq pk 2.2 cm MR Peak Velocity 575.0 cm/s MR Peak Gradient 132.3 mmHg
[2016-07-18] MEDS ORDERED: ZOFRAN4 M2 PO (19:04)
--- NOTE | 2016-07-18 19:14 | Discharge Summary ---
See Addendum Visit Information Visit Dates Admission Date: 07/15/16 Discharge Date: 06/21/16 Hospital Course Course Attending Physician: WAYNE CROCKETT,NOEL Ybarra Primary Care Physician: SANDI CROCKETT,TAYLA Pereyra Consulting Request: Consulting Specialty: Cardiology Hospital Course: Patient is 85 yo F with h/o Parkinson's disease, atrial valve prolapse, mitral regurgitation, CHF, HTN was brought from home with 1 week h/o weakness, anorexia and nausea. Patient was recently seen at [facility] (Jun 2015) for dehydration and jaundice with elevated LFTs, however she was not admitted. On admission, Labs were pertinent for elevated proBNP, troponin negative 3, UA positive for nitrates and leukocyte esterase and 15-25 urine WB Vitals on admission were stable except for an episode of hypoxia (87% RA) but 97 % on 2L. Exam: She was awake, alert, slow to respond, mucous membranes moist, JVP fullness+, Chest bibasilar crackles++, Heart S1S2 regular, holosystolic murmur radiating to the axilla, LE: 1+ edema with chronic venous stasis changes. Labs were significant for : WBC 11.3 later trended down , T. Bili 3.8 with direct bilirubin of 0.6 suggesting elevated unconjugated bilirubin, proBNP 4480, trop neg. UA hazy, nitrite positive, small LE, WBC 15-25, many bacteria. Imgaing done during hospital stay CXR: b/l pleural effusions, cardiomegaly and mild central venous congestion. CTA chest/abd/pelvis: 1. No evidence of pulmonary embolism. 2. Bilateral pleural effusions with bibasilar atelectasis. 3. No acute abnormality of the abdomen or pelvis. There is diverticulosis of the colon but no acute change of the bowel. No abnormality of the liver, gallbladder or bile ducts. EKG: Sinus tachycardia with bentricular bigeminy, Qtc 489. Echocardiogram 07/18 Normal size left ventricle. Normal left ventricular ejection fraction visually estimated at > 60%. Mild left atrial dilatation. Moderate mitral annular calcification. Mitral valve thickened. Severe prolapse of posterior mitral leaflet. Moderate to severe mitral regurgitation with eccentric jet. Mild tricuspid regurgitation. Right ventricular systolic pressure estimated to be elevated at 61 mmHg. No significant aortic stenosis. 1. Acute decompensation of CHF in the setting of severe MR, with hypoxia. Patient was admitted to telemetry floor. She was on spirinolactone and HCTZ that was recently discontinued. She was give one dose of Bumex 0.6mg in ER and assess diuresis. She has documented reaction to Lasix :bullous pemphigoid 2 years ago which has confirmed by her esthetician facialist Dr. Semaj Hinton at [facility], she also recently received a dose of Bumex on and had a similar reaction. To be noted she did recieve one dose of bumex on admission and no skin leisons has been observed. Cardiology consult service was on board. 2. UTI. Although she did not have urinary symptoms, she had systemic symptoms of weakness, anorexia, hence will treat with IV ceftriaxone later transitioned to PO keflex 250 mg q6 will need 2 more days for a total of 7 days. UC was significant for E coli 3. Possible worsening Parkinson's disease with dementia. Patient needs an outpatient geriatric evaluation where the ore dryer can spend 2-3 hours with the patient and further refine her medication list. 4. PT Evaluation was done and they recommended STR 5. Elevated bilirubin of unclear etiology. MRCP results noted, no obstruction, Patient most likely may have Gilbert's syndrome which her son/daughter/grandson have been diagnosed with. No acute intervention. Patient has severe MR and cannot effectively diurese her because she has this reaction to Lasix. In addition the patient's family feels that the patient has a severe reaction to hydrochlorothiazide with slow mentation and a glassy eyed look. Hence we are discharging her off any diuretics and this needs to be closely followed up with her french drawer. In addition she also has constant complaints of nausea and abdominal discomfort with extensive workup done at [facility] and the results of which are with the family. She would benefit from an outpatient geriatrics evaluation with a focus on goals of care and side effects of medications reviewed at length. We are using a low dose of Zofran for nausea but QTC needs to be closely followed up. Code status is DNR/I. Allergies: Coded Allergies: bumetanide (From BUMEX) (Intermediate, SKIN BLISTERS 07/15/16) furosemide (Intermediate, SKIN BLISTERS 07/15/16) Disposition Summary Disposition Principal Diagnosis: CHF with Mitral regurg (severe) Additional Diagnosis: Parkinson's disease, Nausea with elevated TBI and no obstruction or transaminitis Discharge Disposition: SNF Discharge Instructions General Discharge Information Code Status: Do Not Resucitate/Intubat Patient's Diet: Mechanical ground and moist diet with thin liquids Patient's Activity: Ad violette Follow-Up Instructions/Appts: Close f/u with Cardiology regarding MR, Neurology for her Parkinson's and Outpt Geriatrics eval. Medications at Discharge Discharge Medications: Stop taking the following medications: Spironolactone (Spironolactone) 25 MG TABLET ORAL DAILY Qty = 30 Hydrochlorothiazide (Hydrochlorothiazide) 25 MG TABLET ORAL DAILY Qty = 180 Continue taking these medications: Aspirin (Aspirin*) 81 MG TAB.CHEW 1 Tablet ORAL DAILY Comments: NOT GIVEN THIS ADMISSION Carbidopa/Levodopa (Sinemet 25-100 MG Tablet) 25 MG-100 MG TABLET 1 Tablet ORAL 4XDAILY Comments: Last Taken:07/19/16 Time:08:27A.M Start taking the following new medications: Cephalexin (Keflex) 250 MG CAPSULE 1 Capsule ORAL 4 TIMES A DAY Qty = 8 No Refills Comments: Last Taken:07/19/16 Time: 11:56A.M Ondansetron HCl (Zofran) 4 MG TABLET 1 Tablet ORAL DAILY as needed for nausea Qty = 14 No Refills Comments: Last Taken:07/18/16 Time: 4:06P.M Copies To: EUSEBIO CROCKETT,PRIYA Carlson; SANDI CROCKETT,TAYLA Pereyra Attending MD Review Statement Documenting Attending: WAYNE CROCKETT,NOEL Ybarra
[2016-07-18 23:59] VITALS: BP 100/60
--- NOTE | 2016-07-19 07:44 | PN- Student ---
Subjective Subjective: Patient is seen and examined at bedside. Patient is doing well. Her nausea has resolved following 1 dose of sulfram with no adverse reaction to the medication. Patient appetite is okay and was able to tolerate her dinner last night without vomiting. Patient continues to have good urine output without HZT. Patient denies h/a, nausea, vomiting, dysphagia, difficulty with swallowing, chest pain, palpitations, shortness of breath, chest heaviness, abdominal pain, hematuria, and diarrhea and bloody bowel movement. Patient has no issues at this time. Objective Results Results: Laboratory Tests 07/18/16 0605: Anion Gap 8, Estimated GFR > 60, BUN/Creatinine Ratio 21.3, Magnesium 1.7 07/17/16 0625: CBC w Diff NO MAN DIFF REQ, RBC 4.01 L, MCV 91.6, MCH 30.9, RDW 14.6 H, MPV 8.9, Gran % 61.5, Lymphocytes % 25.3, Monocytes % 8.9, Eosinophils % 3.4, Basophils % 0.9, Absolute Granulocytes 3.5, Absolute Lymphocytes 1.4, Absolute Monocytes 0.5, Absolute Eosinophils 0.2, Absolute Basophils 0.1, PUBS MCHC 33.8 Assessment/Plan Assessment: Assessment: 85-year-old woman with PMHx of Parkinson's disease on Sinemet, mitral valve proplase, mitral regurgitation, HFpEF, HTN admitted for weakness, anorexia and decreased responsiveness. Patient was recently discharged (21 days ago) from [facility] for an acute exacerbation of CHF, dehydration and jaundice with elevated LFTs. Her home diuretic therapy (Hydrochlorothiazide 25mg BID) was discontinued due to concerns regarding volume depletion. Patient has a documented medication allergies of bullous pemphigoid reaction to Lasix and Bumetanide. Patient's urine culture came back growing gram negative rods to go along with her UA suspicious for an UTI due to + nitrites and + leukocyte esterase. Patient's most recent echo (07/16/16) demonstrated severe mitral regurgitation, mitral valve prolapse, and critical aortic stenosis with an EF > 60%. It was unclear based on the records when the patient's aortic stenosis was first diagnosed. Given the severity of the patient's valvular disease, patient's recent symptoms is most likely due to recent discontinuation of her diuretic medication following discharge from [facility]. Plan: Pleural Effusion 2/2 Acute Exacerbation of her Congestive Heart Failure ( Diastolic HF): Patient most likely developed pleural effusion due to acute volume overload due to the recent discontinuation of her diuretic therapy. Patient echo on 07/17/16 showed severe aortic stenosis, severe mitral regurgiation and severe prolapse of her posterior mitral leaflet with EF > 60%. These underlying cardiac anatomic abnormalities makes our patient highly susceptible to developing acute pulmonary edema. Her serial Troponins and EKGs were negative which make us less concern of an acute coronary syndrome. Patient's family was concerned regarding patient's mental status while on hydrocholorthiazide. Family was informed of the consequences of stopping diuretic therapy and the potential impact on the patient's cardiovascular system. Patient currently has heart failure with preserved ejection fraction (HFpEF) 2/2 to severe mitral regurgitation. Patient' s repeat echo demonstrated no significant aortic stenosis, cardiology reports that the previous finding of critical aortic stenosis on echo was due an artifact. Patient's electrolyte levels are stable with no hyponatremia or hyperkalemia. Plan: - continue close monitoring of input and outputs - encourage salt-restricted diet at home to prevent fluid overload - Follow cardiology recommendation regarding holding HZT diuretic therapy at this time which is align with the family's wishes considering their concern with the patient regressing mental status when on hydrochlorothiazide - Patient will follow up with her outpatient cardiology for her severe MR and MVP to determine the possibility of a mitral valve repair if patient continues to develop acute exacerbations of the diastolic heart failure (currently NYHA Class III/IV) Urinary Tract Infection: Patient's UA demonstrated WBC of 15-25 with occasional epithelial cells and many bacteria with small leukocytes esterase and positive nitries suggestive of a urinary tract infection. Patient's urine culture grew E. Coli that was resistant to ciprofloxacin and incomplete sensitivity to Ampicillin and Augmentin. Patient WBC is trending down from 11.3-5.7. Plan - Continue PO antibiotics cephalexin 250mg q6 day 4/5 - encourage adequate hydration Parkinson's disease: Patient reports improved tremor and muscle rigidity following the start of her home regiment for levodopa and carvidopa. Patient deneis nausea, vomiting, and mood changes. Plan - Continue levodopa and carvidopa (sinemet Cr 25/100mg) at 0800, 1300, 1700, 2100 - Patient should following with outpatient neurology for medication reevaluation Secondary Constipation Patient has not had a bowel movement since admission most likely due to ileus, possible fecal impaction, parkinson's disease, and mechanical bowel obstruction. Patient benign abdominal exam, positive flatus, lack of fever and tachycardia make me less suspicious of a complete mechanical bowel obstruction. Ileus cannot be ruled out at this time. Plan: - discontinue bowel regimen Nausea and Vomiting Most likely due to her parkinson medications. Patient has no associated vomiting , abdominal pain with nausea. Patient has no symptoms that is suggestive of vertigo induced nausea. Plan: - Continue sulfram 4mg PO and put on discharge orders. - Observe for possible adverse reaction and serotonin syndrome. Patient will discharged today to rehab facility and will follow up with her outpatient manpower development manager on friday.
[2016-07-19 08:32] VITALS: BP 100/70
--- NOTE | 2016-07-19 09:02 | PN- Housestaff ---
JAX DENT 07/19/16 0902: Subjective Follow-up For: Deconditioning, weakness bilateral lower extremity swelling Parkinson's disease Tele-Events Since Last Visit: Sinus rhythm, 65-86 PACs, PVCs Subjective: Seen and examined patient, offer no complaints feel well. Review of Systems Constitutional: Denies: chills, diaphoresis, fever, malaise, weakness, unexplained weight loss. Cardiovascular: Denies: chest pain, edema, orthopena, palpitations, peripheral edema, syncope. Respiratory: Denies: cough, hemoptysis, orthopnea, short of breath, sputum production, stridor, wheezing. Objective Last 24 Hrs of Vital Signs/I&O Vital Signs Date Time Temp Pulse Resp B/P Pulse O2 O2 Flow FiO2 Ox Delivery Rate 07/19 1222 97.7 84 20 100/70 07/19 0832 97.7 84 20 100/70 98 Nasal 2.0L Cannula 07/19 0800 94 Nasal 2.0L Cannula 07/19 0000 Nasal 2.0L Cannula 07/18 2359 98.3 86 20 100/60 95 Nasal 2.0L Cannula 07/18 1600 95 Nasal 2.0L Cannula 07/18 1542 97.4 89 20 128/64 94 Nasal 2.0L Cannula 07/18 1454 Nasal 2.0L Cannula Intake & Output 07/19 1600 07/19 0800 07/19 0000 Intake Total 240 460 Output Total 350 Balance 240 110 Intake, IV 10 Intake, Oral 240 450 Number 0 Bowel Movements Output, Urine 350 Physical Exam General Appearance: Alert, Oriented X3, Cooperative, No Acute Distress Cardiovascular: Regular Rate, Normal S1, Normal S2, systolic murmur Lungs: Clear to Auscultation, Normal Air Movement Extremities: No Edema Current Medications: Current Medications Sig/Gayle Start time Last Medication Dose Route Stop Time Status Admin Acetaminophen 650 MG Q6 PRN 07/15 2230 AC PO Carbidopa/Levodopa 1 TAB 0800,1300,1700,2100 07/16 1300 AC 07/19 PO 0827 Cephalexin 250 MG Q6 07/17 1800 AC 07/19 PO 1156 Clobetasol Propionate 1 LYNN DAILY PRN 07/15 2230 AC TOP Diphenhydramine HCl 25 MG ONCE PRN 07/16 0215 AC PO Enoxaparin Sodium 40 MG DAILY 07/16 1000 AC 07/19 SC 0936 Ondansetron HCl 4 MG Q12 PRN 07/18 1530 AC 07/18 PO 1605 Ondansetron HCl 4 MG Q12P PRN 07/15 2230 DC IV Sodium Chloride 2 SPRAY Q4P PRN 07/18 2100 AC MANIJNDER Assessment/Plan Assessment: 85-year-old woman with medical history significant for Parkinson's disease on Sinemet, atrial valve prolapse, mitral regurgitation, HFpEF, HTN current admission for weakness, anorexia and nausea, she was recently admitted presented to [facility] for dehydration and jaundice with elevated LFTs, however she was not admitted. Labs were pertinent for elevated proBNP, troponin negative 3 , UA positive for nitrates and small leukocyte esterase and 15-25 urine WBC. Chest x-ray shows bilateral pleural effusion, small to moderate in volume, cardiomegaly and mild central venous congestion. Patient continues to answer questions appropriately for me and she remains alert and hemodynamically stable. clinical improvement in lower extremity swelling noted. Continues to require supplemental oxygen Problem list Deconditioning Parkinson's disease HFpEF Severe MR Plan: on by mouth Keflex day 4/5 days continue Sinemet repeat echo showed no significant , and only MR Hydrochlorothiazide was discontinued. Her blood pressures have remained stable. PT recommending short-term rehabilitation DIET spoke with speech they are recommending that she be on a mechanical soft moist diet DVT prophylaxis with subcutaneous Lovenox DNI/DNR will be dicharged to [facility] on supplemental Oxygen Problem List: 1. UTI (urinary tract infection) 2. Weakness 3. Fluid overload Pain Ratin Pain Location: na Pain Goal: Pain 4 or less Pain Plan: current regimen Tomorrow's Labs & Rationales: none required Consulting Request: Consulting Specialty: Cardiology NOEL BLACK MD 07/19/16 1328: Attending MD Review Statement Attending Statement Attending MD Statement: examined this patient, discuss w/resident/PA/SHANK BREAKER, agreed w/resident/PA/SHANK BREAKER, discussed with family, reviewed EMR data (avail), discussed with nursing, discussed with case mgmt, reviewed images Attending Assessment/Plan: Patient's volume status appears about the same. She is saturating well on room air and has trace pedal edema. At this point the plan is to send her to [facility] off any diuretic with close outpatient follow-up. I spoke at length with family to go over goals of care, close outpatient geriatrics, follow-up of volume status off all diuretics and follow-up closely. Total time spent coordinating discharge was 38 minutes.
[2016-07-19 12:22] VITALS: BP 100/70
--- NOTE | 2016-07-19 13:26 | NUR ---
WOUND CARE: REQUESTED BY FAMILY TO EVAL TOMAS BUTTOCKS PRIOR TO DC - TOMAS BUTTOCKS INTACT DESPITE HYPERPIGMENTED TISSUE FROM PREVIOUS SKIN BREAKDOWN IN PAST PRESUMED - RECOMMEND: APPLY MOISTURE BARRIER BID PER FACILITY GUIDELINES - FAMILY ALSO REQUESTING OT EVAL TO ASSIST [facility] FEEDINGS AT [facility]
--- NOTE | 2016-07-19 13:50 | NUR ---
CALLED TO PATIENT'S ROOM BY [facility] TO ASSESS WOUND ON PATIENT'S BUTTOCK. ON ASSESSEMENT, OLD HEALED WOUND NOTED, INTACT SKIN. SMALL REDDENED AREAS NOTED ON BILATERAL BUTTOCK. ALL BLANCHABLE WHEN PALPATED. WOUND NURSE RAYMOND ON UNIT AND WAS CALLED IN TO ASSESS. RECCOMMENDED BARRIER CREAM TO BUTTOCKS TO MAINTAIN INTACT SKIN. FAMILY AWARE. W10 UPDATED TO REFLEX TREATMENT.
== END 2016-07-19 14:43 | DRG 292 ==
LOC: ENRESERVTM → ENRESERVDT → CANRESERV → ERH 15:32 → ERHI 19:31 → 1NO 19:31 → ENPENDDIS 19:31 → 1NO 23:15
PROVIDERS: Internal Medicine; Physician Assistant Medical; ADMIT Student in an Organized Health Care Education/Training Program
DX: I11.0 Hypertensive heart disease with heart failure (principal); N39.0 Urinary tract infection, site not specified; G20 Parkinson's disease; I50.33 Acute on chronic diastolic (congestive) heart failure; I35.0 Nonrheumatic aortic (valve) stenosis; F02.80 Dementia in other diseases classified elsewhere, unspecified severity, without behavioral disturbance, psychotic disturbance, mood disturbance, and anxiety; I34.0 Nonrheumatic mitral (valve) insufficiency; R74.0 Nonspecific elevation of levels of transaminase and lactic acid dehydrogenase [LDH]; Z66 Do not resuscitate
CPT/HCPCS: 1NSP; 36415; 74177; 81001; 82436; 87086; 93005; 93010; 93306; 93308; 93321; 96374; 97110-GO; 97116-GO; 97161-GP; 97530-GO; J0696; J1650; J2405; J3101